=== PATIENT | female | born 1990 | race Caucasian/White ===

== ENCOUNTER 2016-07-16 22:47 | Emergency (ER) | payer MEDICAID ==
[~2016-07-16] VITALS: Ht 167.6 cm; Wt 62.4 kg
[~2016-07-16 22:47] MED LIST: CIPR750T10 PO; LAMI25TA3 PO; PRED5TAB; PRIL10CA PO
[2016-07-16 22:51] VITALS: BP 121/83; PULSE 90; RESP 16; TEMP 98.5; O2SAT 100
[2016-07-16 23:10] VITALS: BP 127/83; PULSE 90; RESP 18; TEMP 98.5; O2SAT 100
[2016-07-16] MEDS ORDERED: OMEP10CA PO (23:10)
[2016-07-16] MEDS ORDERED: LAMO150 PO (23:10)
--- NOTE | 2016-07-16 23:24 | PD ---
HPI Chief Complaint: Head Injury Time Seen by Provider: 23:18 Travel History International Travel<30 days: No Contact w/Intl Traveler<30days: No Traveled to known affect area: No History of Present Illness HPI This 25-year-old female with the back of her head during the seizure. She has a lifelong history of seizures. She is on Lamictal 150 twice a day she takes her medication on a regular basis. She does not drink alcohol she has grand mal and petit mal seizures. She has not had a grand mal seizure for almost a year. She gets petit mal seizures almost every day. She sees a neurologist in [place]. She has no numbness tingling or paresthesias there are no other injuries PFSH Past Medical History Asthma: Yes Bipolar Disorder: Yes Anxiety: Yes Depression: Yes Diminished Hearing: No Psychiatric: Yes (SUPPOSE TO TAKE MEDS FOR BIPOLAR BUT CAN'T AFFORD THEM ) Seizures: Yes Tetanus Vaccination: Unknown Influenza Vaccination: No ?: Not LMP: 06/14/16 : 2 Para: 2 Past Surgical History Cholecystectomy: Yes Oral Surgery: Yes (wisdom teeth removed) Social History Alcohol Use: No Tobacco Use: Yes (1PK/DAY) Substance Use: No Allergies-Medications (Allergen,Severity, Reaction): Coded Allergies: No Known Allergies (Verified , 07/16/16) Reported Meds & Prescriptions Reported Meds & Active Scripts Active Reported Omeprazole 10 Mg Cap 10 Mg PO DAILY Lamictal (Lamotrigine) 150 Mg Tab 150 Mg PO BID Review of Systems General / Constitutional: No: Fever, Chills Eyes: No: Diploplia HENT: Positive: Headaches, No: Vertigo, Lightheadedness Cardiovascular: No: Chest Pain or Discomfort Respiratory: No: Cough, Shortness of Breath Gastrointestinal: No: Nausea, Vomiting Genitourinary: No: Urgency, Frequency Musculoskeletal: Positive: Pain, No: Myalgias Skin: No Rash, No Itching Neurologic: No: Weakness, Dizziness Hematologic/Lymphatic: No: Easy Bruising Physical Exam Narrative GENERAL: Well-developed female SKIN: Focused skin assessment warm/dry. HEAD: Atraumatic. Normocephalic. Ears some tenderness in the occipital portion of the scalp. EYES: Pupils equal and round. No scleral icterus. No injection or drainage. ENT: No nasal bleeding or discharge. Mucous membranes pink and moist. NECK: Trachea midline. No JVD. No posterior midline tenderness CARDIOVASCULAR: Regular rate and rhythm. No murmur appreciated. RESPIRATORY: No accessory muscle use. Clear to auscultation. Breath sounds equal bilaterally. GASTROINTESTINAL: Abdomen soft, non-tender, nondistended. Hepatic and splenic margins not palpable. MUSCULOSKELETAL: No obvious deformities. No clubbing. No cyanosis. No edema. NEUROLOGICAL: Awake and alert. No obvious cranial nerve deficits. Motor grossly within normal limits. Normal speech. PSYCHIATRIC: Appropriate mood and affect; insight and judgment normal. Data Data Last Documented VS Vital Signs Date Time Temp Pulse Resp B/P Pulse Ox O2 Delivery O2 Flow Rate FiO2 07/16/16 23:13 90 18 100 Room Air 07/16/16 23:10 98.5 127/[address] Brain W/O Iv Contrast(Rout) (07/16/16 23:18) [facility] Medical Decision Making Medical Screen Exam Complete: Yes Emergency Medical Condition: Yes Medical Record Reviewed: Yes Differential Diagnosis Differential includes skull fracture, subdural, seizure disorder Narrative Course Patient's seizures have been fairly well-controlled she says she is compliant with her medication. She did hit her head during the seizure and I will do a CT scan to assess for possible injury. CT scan has been done and is negative for fracture or hemorrhage. Patient is stable for discharge Diagnosis Primary Impression: Seizure disorder Additional Impression: Contusion of head Qualified Code: S00.93XA - Contusion of head, unspecified part of head, initial encounter Disposition: DISCHARGE HOME Condition: Stable Aren Harris MD July 16, 2016 23:24
[2016-07-17 00:06] VITALS: BP 118/74; PULSE 80; RESP 18; O2SAT 99
--- NOTE | 2016-07-17 00:08 | RADHPO ---
EXAM DATE/TIME: 07/16/2016 23:29 [facility] COMPARISON: No previous studies available for comparison. INDICATIONS : Syncopal episode, fall. RADIATION DOSE: 67.17 CTDIvol (mGy) MEDICAL HISTORY : Seizures. SURGICAL HISTORY : None. ENCOUNTER: Initial ACUITY: 1 day PAIN SCALE: 3/10 LOCATION: cranial TECHNIQUE: Multiple contiguous axial images were obtained of the head. Using automated exposure control and adj ustment of the mA and/or kV according to patient size, radiation dose was kept as low as reasonably a chievable to obtain optimal diagnostic quality images. FINDINGS: CEREBRUM: The ventricles are normal for age. No evidence of midline shift, mass lesion, hemorrhage or acute in farction. No extra-axial fluid collections are seen. POSTERIOR FOSSA: The cerebellum and brainstem are intact. The 4th ventricle is midline. The cerebellopontine angle i s unremarkable. EXTRACRANIAL: The visualized portion of the orbits is intact. SKULL: The calvaria is intact. No evidence of skull fracture. CONCLUSION: 1. No evidence of acute intracranial pathology. No masses are identified. Flavio Doyle MD on July 17, 2016 at 0:06 Board Certified Radiologist. This report was verified electronically.
== END 2016-07-17 00:15 | disposition home or self-care (01) ==
LOC: PHED 22:47
DX: S00.93XA Contusion of unspecified part of head, initial encounter (principal); R56.9 Unspecified convulsions; J45.909 Unspecified asthma, uncomplicated; F17.210 Nicotine dependence, cigarettes, uncomplicated; W22.09XA Striking against other stationary object, initial encounter; Y93.89 Activity, other specified; Y92.9 Unspecified place or not applicable; Y99.8 Other external cause status
CPT/HCPCS: 70450

== ENCOUNTER 2016-09-02 15:46 | Emergency (ER) | payer MEDICAID ==
[2016-09-02] VITALS (7 sets, daily range): BP systolic 111–122; BP diastolic 57–83; PULSE 80–111; RESP 16; TEMP 99–100.7; O2SAT 98–100
[~2016-09-02] VITALS: Ht 162.6 cm; Wt 61.8 kg
[~2016-09-02 15:46] MED LIST changes: -CIPR750T10 PO; -LAMI25TA3 PO; +LAMO150 PO; +OMEP10CA PO; -PRED5TAB; -PRIL10CA PO
[2016-09-02] MEDS ORDERED: diphenhydrAMINE HCL 50 MG/ML VIAL IV PUSH ONE (16:15)
[2016-09-02] MEDS ORDERED: SODIUM CHLOR 0.9% 1000 ML INJ 800 ML IV ONE (16:15)
[2016-09-02] MEDS ORDERED: PROCHLORPERAZINE INJ 10 MG/2 ML VIAL IV PUSH ONE (16:15)
[2016-09-02] MEDS ORDERED: ACETAMINOPHEN 325 MG TAB PO ONE (16:15)
[2016-09-02] MEDS ORDERED: SODIUM CHLOR 0.9% 1000 ML INJ 1,000 ML IV ONE (16:15)
--- NOTE | 2016-09-02 16:40 | RADHPO ---
EXAM DATE/TIME: 09/02/2016 16:20 [facility] COMPARISON: No previous studies available for comparison. INDICATIONS : Weakness. Nausea. Patient states pain all over body. MEDICAL HISTORY : None. SURGICAL HISTORY : None. ENCOUNTER: Initial ACUITY: 1 day PAIN SCORE: 10/10 LOCATION: chest FINDINGS: PA and lateral views of the chest demonstrate the lungs to be symmetrically aerated without evidence of mass, infiltrate or effusion. The cardiomediastinal contours are unremarkable. Osseous structure s are intact. There appear to be clips in the right upper quadrant of the abdomen. CONCLUSION: No acute disease. Dallas Lu MD on September 02, 2016 at 16:37 Board Certified Radiologist. This report was verified electronically.
[2016-09-02 16:45] LABS: AUTOMATED NEUTROPHIL # 4.1 TH/MM3 (1.8-7.7); BASOPHIL % 0.2 % (0.0-2.0); EOSINOPHIL # 0.1 TH/MM3 (0-0.4); EOSINOPHIL % 1.2 % (0.0-4.0); HEMO FLAGS DIFF FINAL; LYMPH % 19.3 % (9.0-44.0); LYMPHOCYTE # 1.2 TH/MM3 (1.0-4.8); MEAN CELL VOLUME 91.6 FL (80.0-100.0); MEAN CORPUSCULAR HEMOGLOBIN 31.1 PG (27.0-34.0); MONO % 9.4 % (0.0-8.0); NEUT % 69.9 % (16.0-70.0); PLATELET COUNT 182 TH/MM3 (150-450); RED BLOOD COUNT 4.15 MIL/MM3 (4.00-5.30); RED CELL DISTRIBUTION WIDTH 11.6 % (11.6-17.2)
[2016-09-02 16:51] LABS: BLOOD, URINE SMALL (NEG); GLUCOSE,URINE NEG (NEG); KETONE, URINE NEG (NEG); NITRITE,URINE NEG (NEG)
[2016-09-02 16:53] LABS: CHLORIDE 102 MEQ/L (98-107); POTASSIUM 3.1 MEQ/L (3.5-5.1); SODIUM (NA) 140 MEQ/L (136-145)
[2016-09-02 16:56] LABS: URINE COLOR YELLOW (YELLW/STRAW)
[2016-09-02 16:57] LABS: ANION GAP 9 MEQ/L (5-15); BLOOD UREA NITROGEN 7 MG/DL (7-18); MUCUS URINE MOD /lpf (OCC)
[2016-09-02 16:58] LABS: APTT (PATIENT) 32.4 SEC (24.3-30.1); BACTERIA, URINE MANY /hpf; COMMENT (UR) CATH-CULTURE IND; CULTURE IF INDICATED CATH CULTURE IND; PROTHROMBIN TIME - PATIENT 11.1 SEC (9.8-11.6); RBC, URINE 0-3 /hpf (0-3); SQUAMOUS EPITHELIAL CELL URINE > 8 /hpf (0-5); WBC, URINE 15-19 /hpf (0-5)
[2016-09-02 17:00] LABS: ALT (GPT) 15 U/L (10-53); AST (GOT) 11 U/L (15-37); GLOMERULAR FILTRATION RATE 93 ML/MIN (>89)
[2016-09-02 17:01] LABS: TOTAL BILIRUBIN ADULT 0.4 MG/DL (0.2-1.0)
[2016-09-02 17:03] LABS: ALKALINE PHOSPHATASE 58 U/L (45-117)
[2016-09-02] MEDS ORDERED: cefTRIAXone INJ 1,000 MG in SODIUM CHLORIDE 0.9% INJ 100 ML IV ONE (17:15)
--- NOTE | 2016-09-02 17:29 | RADHPO ---
EXAM DATE/TIME: 09/02/2016 17:13 [facility] COMPARISON: CT BRAIN W/O CONTRAST, July 16, 2016, 23:29. INDICATIONS : Headache and nausea. RADIATION DOSE: 60.15 CTDIvol (mGy) MEDICAL HISTORY : Seizures. SURGICAL HISTORY : Cholecystectomy. ENCOUNTER: Initial ACUITY: 1 day PAIN SCALE: 4/10 LOCATION: cranial TECHNIQUE: Multiple contiguous axial images were obtained of the head. Using automated exposure control and adj ustment of the mA and/or kV according to patient size, radiation dose was kept as low as reasonably a chievable to obtain optimal diagnostic quality images. FINDINGS: CEREBRUM: The ventricles are normal for age. No evidence of midline shift, mass lesion, hemorrhage or acute in farction. No extra-axial fluid collections are seen. POSTERIOR FOSSA: The cerebellum and brainstem are intact. The 4th ventricle is midline. The cerebellopontine angle i s unremarkable. EXTRACRANIAL: The visualized portion of the orbits is intact. SKULL: The calvaria is intact. No evidence of skull fracture. CONCLUSION: 1. No acute intracranial abnormality. Quirino Haynes MD on September 02, 2016 at 17:26 Board Certified Radiologist. This report was verified electronically.
--- NOTE | 2016-09-02 17:43 | PD ---
HPI Chief Complaint: Headache Time Seen by Provider: 16:05 Travel History International Travel<30 days: No Contact w/Intl Traveler<30days: No Traveled to known affect area: No History of Present Illness HPI Patient is a 25 year old female who comes in complaining of headache and not feeling well. She says she has been feeling hot and cold for the past 4 days. She reports a headache in the front of her head. She says she has had a slight cough and she feels pain all over her body. She reports vomiting today. She denies diarrhea. She says she is urinating more often, but has not had burning with urination. She complains or right sided back pain radiating into the right groin. She denies IV drug abuse. She has been taking Ibuprofen at home for her symptoms without much relief. [facility] Past Medical History Hx Anticoagulant Therapy: No Asthma: Yes Bipolar Disorder: Yes Anxiety: Yes Depression: Yes Diabetes: No Diminished Hearing: No Psychiatric: Yes (SUPPOSE TO TAKE MEDS FOR BIPOLAR BUT CAN'T AFFORD THEM ) Seizures: Yes Tetanus Vaccination: Unknown ?: Not : 2 Para: 2 Past Surgical History Cholecystectomy: Yes Oral Surgery: Yes (wisdom teeth removed) Social History Alcohol Use: No Tobacco Use: Yes (1PK/DAY) Substance Use: No Allergies-Medications (Allergen,Severity, Reaction): Coded Allergies: No Known Allergies (Verified , 09/02/16) Reported Meds & Prescriptions Reported Meds & Active Scripts Active Reported Lamictal (Lamotrigine) 150 Mg Tab 150 Mg PO BID Review of Systems Except as stated in HPI: all other systems reviewed are Neg General / Constitutional: Positive: Fever, Chills Eyes: No: Blurred Vision HENT: Positive: Headaches Cardiovascular: No: Chest Pain or Discomfort Respiratory: Positive: Cough, No: Shortness of Breath Gastrointestinal: Positive: Nausea, Vomiting, Abdominal Pain Genitourinary: Positive: Flank Pain Skin: No Rash, No Change in Pigmentation Neurologic: No: Weakness, Dizziness Physical Exam Narrative GENERAL: Awake and alert, in no acute distress. SKIN: Focused skin assessment warm/dry. No wounds or signs of infection. HEAD: Atraumatic. Normocephalic. EYES: Pupils equal and round. No scleral icterus. Extraocular movements intact. ENT: Mucous membranes pink and moist. NECK: Trachea midline. No JVD. No meningeal signs. CARDIOVASCULAR: Regular rate and rhythm. No murmur appreciated. RESPIRATORY: No accessory muscle use. Clear to auscultation. Breath sounds equal bilaterally. GASTROINTESTINAL: Abdomen soft, non-tender, nondistended. Right CVA tenderness. MUSCULOSKELETAL: No obvious deformities. No clubbing. No cyanosis. No edema. NEUROLOGICAL: Awake and alert. No obvious cranial nerve deficits. Motor grossly within normal limits. Normal speech. PSYCHIATRIC: Appropriate mood and affect; insight and judgment normal. Data Data Last Documented VS Vital Signs Date Time Temp Pulse Resp B/P Pulse Ox O2 Delivery O2 Flow Rate FiO2 09/02/16 17:58 100.2 100 16 111/57 100 Room Air Orders Complete Blood Count With Diff (09/02/16 16:15) Comprehensive Metabolic Panel (09/02/16 16:15) Prothrombin Time / Inr (Pt) (09/02/16 16:15) Act Partial Throm Time (Ptt) (09/02/16 16:15) Lactic Acid Sepsis Protocol (09/02/16 16:15) Lipase (09/02/16 16:15) Urinalysis - C+S If Indicated (09/02/16 16:15) Chest, Pa & Lat (09/02/16 16:15) Ecg Monitoring (09/02/16 16:15) Iv Access Insert/Monitor (09/02/16 16:15) Oximetry (09/02/16 16:15) Acetaminophen (Tylenol) (09/02/16 16:15) Ct Brain W/O Iv Contrast(Rout) (09/02/16 16:15) Sodium Chlor 0.9% 1000 Ml Inj (Ns 1000 M (09/02/16 16:15) Sodium Chlor 0.9% 1000 Ml Inj (Ns 1000 M (09/02/16 16:15) Prochlorperazine Inj (Compazine Inj) (09/02/16 16:15) Diphenhydramine Inj (Benadryl Inj) (09/02/16 16:15) Ed Urine Pregnancytest Poc (09/02/16 16:15) Urine Culture (09/02/16 16:34) Ceftriaxone Inj (Rocephin Inj) (09/02/16 17:15) Potassium Chloride (Kcl) (09/02/16 17:45) Ketorolac Inj (Toradol Inj) (09/02/16 18:00) Labs Laboratory Tests Test 09/02/16 16:34 White Blood Count 6.0 TH/MM3 Red Blood Count 4.15 MIL/MM3 Hemoglobin 12.9 GM/DL Hematocrit 38.0 % Mean Corpuscular Volume 91.6 FL Mean Corpuscular Hemoglobin 31.1 PG Mean Corpuscular Hemoglobin 34.0 % Concent Red Cell Distribution Width 11.6 % Platelet Count 182 TH/MM3 Mean Platelet Volume 8.4 FL Neutrophils (%) (Auto) 69.9 % Lymphocytes (%) (Auto) 19.3 % Monocytes (%) (Auto) 9.4 % Eosinophils (%) (Auto) 1.2 % Basophils (%) (Auto) 0.2 % Neutrophils # (Auto) 4.1 TH/MM3 Lymphocytes # (Auto) 1.2 TH/MM3 Monocytes # (Auto) 0.6 TH/MM3 Eosinophils # (Auto) 0.1 TH/MM3 Basophils # (Auto) 0.0 TH/MM3 CBC Comment DIFF FINAL Differential Comment Prothrombin Time 11.1 SEC Prothromb Time International 1.0 RATIO Ratio Activated Partial 32.4 SEC Thromboplast Time Urine Color YELLOW Urine Turbidity CLOUDY Urine pH 6.0 Urine Specific Raymond 1.015 Urine Protein TRACE mg/dL Urine Glucose (UA) NEG mg/dL Urine Ketones NEG mg/dL Urine Occult Blood SMALL Urine Nitrite NEG Urine Bilirubin NEG Urine Leukocyte Esterase SMALL Urine RBC 0-3 /hpf Urine WBC 15-19 /hpf Urine Squamous Epithelial > 8 /hpf Cells Urine Bacteria MANY /hpf Urine Mucus MOD /lpf Microscopic Urinalysis Comment CATH-CULTURE IND Sodium Level 140 MEQ/L Potassium Level 3.1 MEQ/L Chloride Level 102 MEQ/L Carbon Dioxide Level 29.0 MEQ/L Anion Gap 9 MEQ/L Blood Urea Nitrogen 7 MG/DL Creatinine 0.75 MG/DL Estimat Glomerular Filtration 93 ML/MIN Rate Random Glucose 83 MG/DL Lactic Acid Level 0.7 mmol/L Calcium Level 8.5 MG/DL Total Bilirubin 0.4 MG/DL Aspartate Amino Transf 11 U/L (AST/SGOT) Alanine Aminotransferase 15 U/L (ALT/SGPT) Alkaline Phosphatase 58 U/L Total Protein 7.0 GM/DL Albumin 3.5 GM/DL Lipase 104 U/L [facility] Medical Decision Making Medical Screen Exam Complete: Yes Emergency Medical Condition: Yes Medical Record Reviewed: Yes Differential Diagnosis UTI versus pyelonephritis versus gastroenteritis versus pneumonia versus bronchitis versus viral illness Narrative Course Patient is a 25-year-old female who comes in complaining of headache, body aches , nausea, vomiting, right flank pain. Exam shows right CVA tenderness. IV established, labs sent. Labs show a potassium of 3.1, this was replaced. Urinalysis is positive for UTI. She is given a dose of Rocephin here. Given IV fluids. Given Compazine and Benadryl and Tylenol for her headache. She reports feeling better. Given Toradol for continued low grade fever. She will be discharged with prescription for Cipro. She is advised to follow up with a primary care physician. Advised to return to the ED as needed for any worsening symptoms. Diagnosis Primary Impression: Pyelonephritis Patient Instructions: General Instructions, Kidney Infection (ED), Urinary Tract Infection in Women (ED) Additional Instructions: Take all of your antibiotic. Drink plenty of fluids. Take Tylenol or Ibuprofen as needed for pain or fever. Follow up with a primary care physician. Return to the ED as needed for any worsening symptoms. Scripts Ciprofloxacin (Cipro)500 Mg Owt444 Mg PO BID 10 Days Ref 0 Prov:Paulette Mcknight MD 09/02/16 Disposition: 01 DISCHARGE HOME Condition: Stable Paulette Mcknight MD Sep 02, 2016 17:43
[2016-09-02] MEDS ORDERED: POTASSIUM CHLORIDE 10 MEQ CONTROLLED RELEASE TAB PO ONE (17:45)
[2016-09-02] MEDS ORDERED: KETOROLAC TROMETHAMINE 30 MG/ML (IVP) VIAL IV PUSH ONE (18:00)
[2016-09-02] MEDS ORDERED: CIPR-9 PO (19:42)
== END 2016-09-02 20:15 | disposition home or self-care (01) ==
LOC: PHED 15:46
DX: N12 Tubulo-interstitial nephritis, not specified as acute or chronic (principal); R51 Headache; J45.909 Unspecified asthma, uncomplicated; F17.210 Nicotine dependence, cigarettes, uncomplicated; B96.20 Unspecified Escherichia coli [E. coli] as the cause of diseases classified elsewhere
CPT/HCPCS: 70450; 71020; 80053; 81001; 83605; 83690; 84703; 85025; 85610; 85730; 87077; 87086; 87186; 96361; 96365; 96375; 99285; J0696; J0780; J1200; J1885; J7030

== ENCOUNTER 2016-12-28 00:12 | Emergency (ER) | payer MEDICAID ==
[~2016-12-28 00:12] MED LIST changes: +CIPR-9 PO; -OMEP10CA PO
[2016-12-28] MEDS ORDERED: CLON1 PO (00:22)
[2016-12-28] MEDS ORDERED: OMEP20TA PO (00:24)
[2016-12-28 00:25] VITALS: BP 131/63; PULSE 88; RESP 16; TEMP 98.2; O2SAT 95
[2016-12-28] MEDS ORDERED: ZOLO50TA PO (00:25)
[2016-12-28] MEDS ORDERED: CARB300C7 PO (00:25)
[2016-12-28 00:30] VITALS: O2SAT 97
--- NOTE | 2016-12-28 01:36 | PD ---
HPI Chief Complaint: Seizure Time Seen by Provider: 01:19 Travel History International Travel<30 days: No Contact w/Intl Traveler<30days: No Traveled to known affect area: No History of Present Illness HPI The patient is a 26-year-old female that was brought in by ambulance for having a seizure. The patient has a lifelong history of seizures. She takes Lamictal 150 mg twice daily and takes her medications regularly. She does not drink alcohol. Grand mal seizures are somewhat rare for her, the last seizure may have been last July. She does get petit mal seizures almost on a daily basis. She sees a neurologist in the [place]. She has no focal weakness, numbness, tingling, paresthesias or any other injuries other than she bit her lower lip and a tooth. These lesions are barely visible. She denies specifically any head trauma. She does smoke one half pack a day. She has been sleeping upright lately and went to a [employer] game and may have gotten dehydrated and overheated today. She denies any headache. She states there is no possibility of . PFSH Past Medical History Hx Anticoagulant Therapy: No Asthma: Yes Bipolar Disorder: Yes Anxiety: Yes Depression: Yes Diabetes: No Diminished Hearing: No Psychiatric: Yes (SUPPOSE TO TAKE MEDS FOR BIPOLAR BUT CAN'T AFFORD THEM ) Immunizations Current: Yes Seizures: Yes Tetanus Vaccination: Unknown Influenza Vaccination: No ?: Not LMP: 12-14-16 : 2 Para: 2 Past Surgical History Cholecystectomy: Yes Oral Surgery: Yes (wisdom teeth removed) Social History Alcohol Use: No Tobacco Use: Yes (1PK/DAY) Substance Use: No Allergies-Medications (Allergen,Severity, Reaction): Coded Allergies: No Known Allergies (Verified , 12/28/16) Reported Meds & Prescriptions Reported Meds & Active Scripts Active Reported Carbamazepine ER 12 HR (Carbamazepine) 300 Mg Cap 300 Mg PO Q12HR Zoloft (Sertraline HCl) 50 Mg Tab 50 Mg PO DAILY Omeprazole 20 Mg Tab 20 Mg PO DAILY Klonopin (Clonazepam) 1 Mg Tab 1 Mg PO BID Lamictal (Lamotrigine) 150 Mg Tab 150 Mg PO BID Review of Systems Except as stated in HPI: all other systems reviewed are Neg Physical Exam Narrative GENERAL: The patient is alert, oriented 3 in no apparent distress. Her vital signs are normal. SKIN: Focused skin assessment warm/dry. HEAD: Atraumatic. Normocephalic. Neither raccoon eyes nor mccullough sign is present. EYES: Pupils equal and round. No scleral icterus. No injection or drainage. ENT: No nasal bleeding or discharge. Mucous membranes pink and moist. The tympanic membranes are clear and the throat is clear. There is slight swelling of the right tongue where she apparently bit her tongue, this is barely visible. She also has some slight redness on the lower lip where apparently she bit her lower lip during the seizure. NECK: Trachea midline. No JVD. There is no meningismus and no posterior spinous tenderness or deformity. CARDIOVASCULAR: Regular rate and rhythm. No murmur appreciated. RESPIRATORY: No accessory muscle use. Clear to auscultation. Breath sounds equal bilaterally. GASTROINTESTINAL: Abdomen soft, non-tender, nondistended. Hepatic and splenic margins not palpable. MUSCULOSKELETAL: No obvious deformities. No clubbing. No cyanosis. No edema. NEUROLOGICAL: Awake and alert. No obvious cranial nerve deficits. Motor grossly within normal limits. Normal speech and gait. PSYCHIATRIC: Appropriate mood and affect; insight and judgment normal. Data Data Last Documented VS Vital Signs Date Time Temp Pulse Resp B/P (MAP) Pulse Ox O2 Delivery O2 Flow Rate FiO2 12/28/16 00:30 97 Room Air 12/28/16 00:25 98.2 88 16 131/63 (85) Orders Orders Blood Glucose (12/28/16 01:06) Oximetry (12/28/16 01:06) Iv Access Insert/Monitor (12/28/16 01:06) Ecg Monitoring (12/28/16 01:06) Oxygen Administration (12/28/16 01:06) Basic Metabolic Panel (Bmp) (12/28/16 01:06) Labs Laboratory Tests Test 12/28/16 01:17 Blood Urea Nitrogen 14 MG/DL Creatinine 0.71 MG/DL Random Glucose 90 MG/DL Calcium Level 8.3 MG/DL Sodium Level 139 MEQ/L Potassium Level 3.7 MEQ/L Chloride Level 107 MEQ/L Carbon Dioxide Level 25.3 MEQ/L Anion Gap 7 MEQ/L Estimat Glomerular Filtration Rate 99 ML/MIN MDM Medical Decision Making Medical Screen Exam Complete: Yes Emergency Medical Condition: Yes Medical Record Reviewed: Yes Interpretation(s) The basic metabolic profile is normal except for calcium of 8.3. Differential Diagnosis Seizure disorder with seizure, pseudoseizures-unlikely, electrolyte disorder, hypo-/hyperglycemia, severe hypocalcemia-highly unlikely Narrative Course The patient does appear to have sleep deprivation. This coupled with her seizure disorder and being out in the sun, dehydration watching the football game may have lowered her seizure threshold. Plan: The patient is to get adequate sleep and follow-up with her neurologist in [facility]. Additional Instructions: As we discussed, get plenty of sleep and follow-up with your neurologist in [facility]. Med/Other Pt SpecificInfo: No Change to Meds Disposition: 01 DISCHARGE HOME Condition: Stable Jeff Carreno MD Dec 28, 2016 01:36
[2016-12-28 01:47] LABS: POTASSIUM 3.7 MEQ/L (3.5-5.1)
[2016-12-28 01:50] LABS: BICARBONATE 25.3 MEQ/L (21.0-32.0)
[2016-12-28 02:12] VITALS: BP 100/53
== END 2016-12-28 02:19 | disposition home or self-care (01) ==
LOC: PHED 00:12
DX: G40.909 Epilepsy, unspecified, not intractable, without status epilepticus (principal); J45.909 Unspecified asthma, uncomplicated; F31.9 Bipolar disorder, unspecified; F41.9 Anxiety disorder, unspecified; F17.200 Nicotine dependence, unspecified, uncomplicated; Z79.899 Other long term (current) drug therapy
CPT/HCPCS: 80048; 99283

== ENCOUNTER 2016-12-28 03:20 | Emergency (ER) | payer MEDICAID ==
[~2016-12-28] VITALS: Ht 162.6 cm; Wt 60.0 kg
[~2016-12-28 03:20] MED LIST changes: +CARB300C7 PO; +CLON1 PO; +OMEP20TA PO; +ZOLO50TA PO
[2016-12-28] MEDS ORDERED: lamoTRIgine 100 MG TAB PO ONE (03:30)
[2016-12-28 03:31] VITALS: BP 109/54; PULSE 88; RESP 15; TEMP 98.1; O2SAT 95
--- NOTE | 2016-12-28 04:12 | PD ---
HPI Chief Complaint: Seizure Time Seen by Provider: 03:28 Travel History International Travel<30 days: No Contact w/Intl Traveler<30days: No Traveled to known affect area: No History of Present Illness HPI The patient is a 26-year-old female that was seen here about 2 hours ago for having a seizure. She does have a seizure disorder. She had a second seizure lasting less than a minute, it was shorter than the first seizure tonight. She has been sleeping upright of 10 that was felt to be the reason her seizure threshold was lowered. Also, she spent the day watching a football game outside and it was hot and she may have gotten somewhat dehydrated. PFSH Past Medical History Hx Anticoagulant Therapy: No Asthma: Yes Bipolar Disorder: Yes Anxiety: Yes Depression: Yes Diabetes: No Diminished Hearing: No Psychiatric: Yes (SUPPOSE TO TAKE MEDS FOR BIPOLAR BUT CAN'T AFFORD THEM ) Immunizations Current: Yes Seizures: Yes Tetanus Vaccination: Unknown Influenza Vaccination: No ?: Not LMP: 12-14-16 : 2 Para: 2 Past Surgical History Cholecystectomy: Yes Oral Surgery: Yes (wisdom teeth removed) Social History Alcohol Use: No Tobacco Use: Yes (1PK/DAY) Substance Use: No Allergies-Medications (Allergen,Severity, Reaction): Coded Allergies: No Known Allergies (Verified , 12/28/16) Reported Meds & Prescriptions Reported Meds & Active Scripts Active Reported Carbamazepine ER 12 HR (Carbamazepine) 300 Mg Cap 300 Mg PO Q12HR Zoloft (Sertraline HCl) 50 Mg Tab 50 Mg PO DAILY Omeprazole 20 Mg Tab 20 Mg PO DAILY Klonopin (Clonazepam) 1 Mg Tab 1 Mg PO BID Lamictal (Lamotrigine) 150 Mg Tab 150 Mg PO BID Review of Systems Except as stated in HPI: all other systems reviewed are Neg Physical Exam Narrative GENERAL: The patient is alert, oriented 3 in no apparent distress. She is slightly groggy, she gets this way after her seizures according to the . The blood pressure is 109/54 but the rest the vital signs are normal. SKIN: Focused skin assessment warm/dry. HEAD: Atraumatic. Normocephalic. EYES: Pupils equal and round. No scleral icterus. No injection or drainage. ENT: No nasal bleeding or discharge. Mucous membranes pink and moist. NECK: Trachea midline. No JVD. CARDIOVASCULAR: Regular rate and rhythm. No murmur appreciated. RESPIRATORY: No accessory muscle use. Clear to auscultation. Breath sounds equal bilaterally. GASTROINTESTINAL: Abdomen soft, non-tender, nondistended. Hepatic and splenic margins not palpable. MUSCULOSKELETAL: No obvious deformities. No clubbing. No cyanosis. No edema. NEUROLOGICAL: Awake and alert. No obvious cranial nerve deficits. Motor grossly within normal limits. Normal speech. PSYCHIATRIC: Appropriate mood and affect; insight and judgment normal. Data Data Last Documented VS Vital Signs Date Time Temp Pulse Resp B/P (MAP) Pulse Ox O2 Delivery O2 Flow Rate FiO2 12/28/16 03:31 98.1 88 15 109/54 (72) 95 Orders Orders Lamotrigine (Lamictal) (12/28/16 03:30) [facility] Medical Decision Making Medical Screen Exam Complete: Yes Emergency Medical Condition: Yes Medical Record Reviewed: Yes Differential Diagnosis Seizure disorder with seizures, status epilepticus-highly unlikely Narrative Course The patient has seizure disorder with seizures. I still believe that sleep deprivation is lowered her seizure threshold. Also, the day out in the sun may have lowered the threshold as well. Plan: The patient will call her neurologist Thursday morning for advice/possible medication adjustment. Additional Instructions: As we discussed, call your neurologist Thursday morning for advice/possible medication adjustment. Med/Other Pt SpecificInfo: No Change to Meds Disposition: 01 DISCHARGE HOME Condition: Stable eJff Carreno MD Dec 28, 2016 04:12
== END 2016-12-28 04:26 | disposition home or self-care (01) ==
LOC: PHED 03:20
DX: G40.909 Epilepsy, unspecified, not intractable, without status epilepticus (principal); J45.909 Unspecified asthma, uncomplicated; F31.9 Bipolar disorder, unspecified; F41.9 Anxiety disorder, unspecified; F17.200 Nicotine dependence, unspecified, uncomplicated; Z79.899 Other long term (current) drug therapy
CPT/HCPCS: 99283

== ENCOUNTER 2017-03-12 13:36 | Emergency (ER) | payer MEDICAID ==
[~2017-03-12] VITALS: Ht 167.6 cm; Wt 59.0 kg
[~2017-03-12 13:36] MED LIST changes: -CIPR-9 PO; -OMEP20TA PO; +OMEP20TA93 PO
[2017-03-12 13:37] VITALS: BP 125/71; PULSE 97; RESP 18; TEMP 98; O2SAT 97
[2017-03-12] MEDS ORDERED: CLON.5 PO (13:55)
[2017-03-12] MEDS ORDERED: TEGR200T PO (13:58)
[2017-03-12] MEDS ORDERED: SODIUM CHLOR 0.9% 1000 ML INJ 1,000 ML IV SCH (14:01)
--- NOTE | 2017-03-12 14:09 | PD ---
HPI Chief Complaint: Flank/Kidney Pain Time Seen by Provider: 13:46 Travel History International Travel<30 days: No Contact w/Intl Traveler<30days: No Traveled to known affect area: No History of Present Illness HPI The patient is a 26-year-old female who presents to the emergency department for right flank pain of 5 days' duration. The patient states the pain started 5 days ago, is located mid right lumbar region, radiates to the right flank, is intermittent, worse with certain movements, but also present at rest. Occasionally the patient states the pain will radiate from her neck on the way down the right leg, but is mostly associated over the right flank. She does note nausea and vomiting earlier today secondary to the pain. She denies any dysuria, frequency, urgency, hematuria, vaginal discharge, or vaginal bleeding. The patient's last menstrual cycle was 2 weeks ago. She denies any history nephrolithiasis or ovarian cyst. Symptoms are moderate without any alleviating or exacerbating factors. Patient's primary physician is Dr. Ray Larose. The patient has not taken any medications at home for her symptoms. The patient denies any postprandial symptoms. She denies any chest pain, shortness breath, or cough. PFSH Past Medical History Hx Anticoagulant Therapy: No Asthma: Yes Bipolar Disorder: Yes Anxiety: Yes Depression: Yes Diabetes: No Diminished Hearing: No Psychiatric: Yes (SUPPOSE TO TAKE MEDS FOR BIPOLAR BUT CAN'T AFFORD THEM ) Immunizations Current: Yes Seizures: Yes ?: Not LMP: 03/03/17 : 2 Para: 2 Past Surgical History Cholecystectomy: Yes Oral Surgery: Yes (wisdom teeth removed) Social History Alcohol Use: No Tobacco Use: Yes (1PK/DAY) Substance Use: No Allergies-Medications (Allergen,Severity, Reaction): Coded Allergies: No Known Allergies (Verified Adverse Reaction, Unknown, 03/12/17) Reported Meds & Prescriptions Reported Meds & Active Scripts Active Reported Tegretol (Carbamazepine) 200 Mg Tab 200 Mg PO BID Klonopin (Clonazepam) 0.5 Mg Tab 0.25 Mg PO BID Zoloft (Sertraline HCl) 50 Mg Tab 150 Mg PO DAILY Omeprazole 20 Mg Tab 20 Mg PO DAILY Lamictal (Lamotrigine) 150 Mg Tab 200 Mg PO BID Review of Systems Except as stated in HPI: all other systems reviewed are Neg General / Constitutional: No: Fever Cardiovascular: No: Chest Pain or Discomfort Respiratory: No: Shortness of Breath Gastrointestinal: Positive: Nausea, Vomiting, No: Diarrhea, Abdominal Pain Genitourinary: Positive: Flank Pain, No: Urgency, Frequency, Dysuria, Hematuria , Discharge, Vaginal Bleeding Skin: No Rash Physical Exam Narrative GENERAL: Awake, alert, pleasant 26-year-old female who appears her stated age and is in no acute respiratory distress. SKIN: Focused skin assessment warm/dry. HEAD: Atraumatic. Normocephalic. EYES: Pupils equal and round. No scleral icterus. No injection or drainage. ENT: No nasal bleeding or discharge. Breath smells of tobacco. NECK: Trachea midline. No JVD. CARDIOVASCULAR: Regular rate and rhythm. No murmur appreciated. RESPIRATORY: No accessory muscle use. Clear to auscultation. Breath sounds equal bilaterally. GASTROINTESTINAL: Abdomen soft, tenderness of the right flank and right mid abdomen. Negative McBurney's. Back: Mild right CVA tenderness. MUSCULOSKELETAL: No obvious deformities. No clubbing. No cyanosis. No edema. NEUROLOGICAL: Awake and alert. No obvious cranial nerve deficits. Motor grossly within normal limits. Normal speech. PSYCHIATRIC: Appropriate mood and affect; insight and judgment normal. Data Data Last Documented VS Vital Signs Date Time Temp Pulse Resp B/P (MAP) Pulse Ox O2 Delivery O2 Flow Rate FiO2 03/12/17 16:11 94 17 110/65 (80) 97 Room Air 03/12/17 13:37 98.0 Orders Orders Urinalysis - C+S If Indicated (03/12/17 13:51) Ed Urine Pregnancytest Poc (03/12/17 13:51) Complete Blood Count With Diff (03/12/17 14:01) Comprehensive Metabolic Panel (03/12/17 14:01) Lipase (03/12/17 14:01) Ct Abd/Pel W/O Iv Contrast (03/12/17 14:01) Iv Access Insert/Monitor (03/12/17 14:01) Ecg Monitoring (03/12/17 14:01) Oximetry (03/12/17 14:01) Morphine Inj (Morphine Inj) (03/12/17 14:15) Ondansetron Inj (Zofran Inj) (03/12/17 14:15) Sodium Chlor 0.9% 1000 Ml Inj (Ns 1000 M (03/12/17 14:01) Sodium Chloride 0.9% Flush (Ns Flush) (03/12/17 14:15) Urine Culture (03/12/17 13:47) Ceftriaxone Inj (Rocephin Inj) (03/12/17 15:00) Ondansetron Inj (Zofran Inj) (03/12/17 15:00) Labs Laboratory Tests Test 03/12/17 13:47 03/12/17 14:15 Urine Collection Type CLEAN CATCH Urine Color YELLOW Urine Turbidity MOD Urine pH 6.0 Urine Specific [place] 1.015 Urine Protein NEG mg/dL Urine Glucose (UA) NEG mg/dL Urine Ketones NEG mg/dL Urine Occult Blood NEG Urine Nitrite POS Urine Bilirubin NEG Urine Leukocyte Esterase NEG Urine WBC 15-19 /hpf Urine WBC Clumps MOD Urine Squamous Epithelial Cells > 8 /hpf Urine Amorphous Sediment FEW Urine Bacteria MANY /hpf Microscopic Urinalysis Comment CULTURE INDICATED Urine Collection Time 1317 White Blood Count 5.3 TH/MM3 Red Blood Count 4.16 MIL/MM3 Hemoglobin 13.1 GM/DL Hematocrit 38.8 % Mean Corpuscular Volume 93.4 FL Mean Corpuscular Hemoglobin 31.6 PG Mean Corpuscular Hemoglobin Concent 33.8 % Red Cell Distribution Width 11.2 % Platelet Count 208 TH/MM3 Mean Platelet Volume 8.7 FL Neutrophils (%) (Auto) 60.8 % Lymphocytes (%) (Auto) 25.8 % Monocytes (%) (Auto) 9.5 % Eosinophils (%) (Auto) 2.2 % Basophils (%) (Auto) 1.7 % Neutrophils # (Auto) 3.2 TH/MM3 Lymphocytes # (Auto) 1.4 TH/MM3 Monocytes # (Auto) 0.5 TH/MM3 Eosinophils # (Auto) 0.1 TH/MM3 Basophils # (Auto) 0.1 TH/MM3 CBC Comment DIFF FINAL Differential Comment Blood Urea Nitrogen 10 MG/DL Creatinine 0.76 MG/DL Random Glucose 84 MG/DL Total Protein 7.1 GM/DL Albumin 3.2 GM/DL Calcium Level 8.9 MG/DL Alkaline Phosphatase 73 U/L Aspartate Amino Transf (AST/SGOT) 49 U/L Alanine Aminotransferase (ALT/SGPT) 43 U/L Total Bilirubin 0.4 MG/DL Sodium Level 136 MEQ/L Potassium Level 4.3 MEQ/L Chloride Level 102 MEQ/L Carbon Dioxide Level 28.8 MEQ/L Anion Gap 5 MEQ/L Estimat Glomerular Filtration Rate 91 ML/MIN Lipase 97 U/L MDM Medical Decision Making Medical Screen Exam Complete: Yes Emergency Medical Condition: Yes Medical Record Reviewed: Yes Interpretation(s) Laboratory Tests Test 03/12/17 13:47 03/12/17 14:15 Urine Collection Type CLEAN CATCH Urine Color YELLOW Urine Turbidity MOD Urine pH 6.0 Urine Specific [place] 1.015 Urine Protein NEG mg/dL Urine Glucose (UA) NEG mg/dL Urine Ketones NEG mg/dL Urine Occult Blood NEG Urine Nitrite POS Urine Bilirubin NEG Urine Leukocyte Esterase NEG Urine WBC 15-19 /hpf Urine WBC Clumps MOD Urine Squamous Epithelial Cells > 8 /hpf Urine Amorphous Sediment FEW Urine Bacteria MANY /hpf Microscopic Urinalysis Comment CULTURE INDICATED Urine Collection Time 1317 White Blood Count 5.3 TH/MM3 Red Blood Count 4.16 MIL/MM3 Hemoglobin 13.1 GM/DL Hematocrit 38.8 % Mean Corpuscular Volume 93.4 FL Mean Corpuscular Hemoglobin 31.6 PG Mean Corpuscular Hemoglobin Concent 33.8 % Red Cell Distribution Width 11.2 % Platelet Count 208 TH/MM3 Mean Platelet Volume 8.7 FL Neutrophils (%) (Auto) 60.8 % Lymphocytes (%) (Auto) 25.8 % Monocytes (%) (Auto) 9.5 % Eosinophils (%) (Auto) 2.2 % Basophils (%) (Auto) 1.7 % Neutrophils # (Auto) 3.2 TH/MM3 Lymphocytes # (Auto) 1.4 TH/MM3 Monocytes # (Auto) 0.5 TH/MM3 Eosinophils # (Auto) 0.1 TH/MM3 Basophils # (Auto) 0.1 TH/MM3 CBC Comment DIFF FINAL Differential Comment Blood Urea Nitrogen 10 MG/DL Creatinine 0.76 MG/DL Random Glucose 84 MG/DL Total Protein 7.1 GM/DL Albumin 3.2 GM/DL Calcium Level 8.9 MG/DL Alkaline Phosphatase 73 U/L Aspartate Amino Transf (AST/SGOT) 49 U/L Alanine Aminotransferase (ALT/SGPT) 43 U/L Total Bilirubin 0.4 MG/DL Sodium Level 136 MEQ/L Potassium Level 4.3 MEQ/L Chloride Level 102 MEQ/L Carbon Dioxide Level 28.8 MEQ/L Anion Gap 5 MEQ/L Estimat Glomerular Filtration Rate 91 ML/MIN Lipase 97 U/L CT the abdomen and pelvis reveals no evidence of calcified renal stones or hydronephrosis. Prominent uterus. No acute pathology. Differential Diagnosis Differential diagnosis includes pyelonephritis, nephrolithiasis, cholecystitis, atypical appendicitis, diverticulitis, PID, ovarian torsion, ectopic . Narrative Course IV was established, labs are drawn and sent, and the patient was placed on cardiac telemetry monitoring and continuous pulse oximetry monitoring. UA test was obtained, was negative. UA was sent to lab. The patient was administered Toradol, morphine, Zofran, and IV fluids. Noncontrast CT of the abdomen and pelvis was performed to evaluate for nephrolithiasis. UA reveals WBCs consistent with infection, with flank pain, most likely pyelonephritis. The patient's white count is unremarkable. CT the abdomen and pelvis reveals no evidence of calcified renal stones or hydronephrosis, no acute pathology. Patient was reevaluated, her pain has significantly improved. The patient was administered Rocephin 1 g intravenously for pyelonephritis will be discharged home on Bactrim twice a day for 10 days. She will also be prescribed ibuprofen as needed for pain. She will be provided a copy of her lab results and CT results at discharge, is advised to follow-up with her primary physician. Diagnosis Primary Impression: Pyelonephritis Patient Instructions: General Instructions Additional Instructions: Medications as directed. Follow-up with your primary physician. Please provide the patient a copy of her CT results and lab results at discharge. Return if symptoms worsen or progress. Med/Other Pt SpecificInfo: Prescription(s) given Scripts Sulfamethoxazole-Trimethoprim (Bactrim DS) 800-160 Mg Tab 1 TAB PO BID for Infection, #20 TAB 0 Refills Prov: Arun Stone MD 03/12/17 Ibuprofen (Ibuprofen) 600 Mg Tab 600 MG PO Q6H Y for Pain/Inflammation, #20 TAB 0 Refills Prov: Arun Stone MD 03/12/17 Disposition: 01 DISCHARGE HOME Condition: Stable Arun Stone MD Mar 12, 2017 14:09
[2017-03-12] MEDS ORDERED: MORPHINE SULFATE 4 MG/ML INJ IV PUSH ONE (14:15)
[2017-03-12] MEDS ORDERED: ONDANSETRON HCL 4 MG/2 ML VIAL IVP ONE (14:15)
[2017-03-12] MEDS ORDERED: SODIUM CHLORIDE 0.9% FLUSH 10 ML FLUSH IV FLUSH PRN (14:15)
[2017-03-12 14:26] VITALS: BP 111/62; PULSE 88; RESP 18; O2SAT 97
[2017-03-12 14:28] LABS: AUTOMATED NEUTROPHIL # 3.2 TH/MM3 (1.8-7.7); BASOPHIL # 0.1 TH/MM3 (0-0.2); BASOPHIL % 1.7 % (0.0-2.0); EOSINOPHIL # 0.1 TH/MM3 (0-0.4); EOSINOPHIL % 2.2 % (0.0-4.0); HEMATOCRIT 38.8 % (35.0-46.0); HEMOGLOBIN 13.1 GM/DL (11.6-15.3); LYMPH % 25.8 % (9.0-44.0); LYMPHOCYTE # 1.4 TH/MM3 (1.0-4.8); MEAN CELL VOLUME 93.4 FL (80.0-100.0); MEAN CORPUSCULAR HEMOGLOBIN 31.6 PG (27.0-34.0); MEAN CORPUSCULAR HGB CONC 33.8 % (32.0-36.0); MEAN PLATELET VOLUME 8.7 FL (7.0-11.0); MONO % 9.5 % (0.0-8.0); MONOCYTE # 0.5 TH/MM3 (0-0.9); NEUT % 60.8 % (16.0-70.0); PLATELET COUNT 208 TH/MM3 (150-450); RED BLOOD COUNT 4.16 MIL/MM3 (4.00-5.30); RED CELL DISTRIBUTION WIDTH 11.2 % (11.6-17.2); WHITE BLOOD COUNT 5.3 TH/MM3 (4.0-11.0)
[2017-03-12 14:37] LABS: CHLORIDE 102 MEQ/L (98-107); SODIUM (NA) 136 MEQ/L (136-145)
[2017-03-12 14:40] LABS: BILIRUBIN, URINE NEG (NEG); BLOOD, URINE NEG (NEG); GLUCOSE,URINE NEG (NEG); KETONE, URINE NEG (NEG); NITRITE,URINE POS (NEG); URINE LEUKOCYTE ESTERASE NEG (NEG)
[2017-03-12 14:41] LABS: ALBUMIN 3.2 GM/DL (3.4-5.0); BICARBONATE 28.8 MEQ/L (21.0-32.0); BLOOD UREA NITROGEN 10 MG/DL (7-18); CALCIUM 8.9 MG/DL (8.5-10.1); GLUCOSE,RANDOM 84 MG/DL (74-106); LIPASE 97 U/L (73-393)
[2017-03-12 14:44] LABS: ALT (GPT) 43 U/L (10-53); AST (GOT) 49 U/L (15-37); CREATININE 0.76 MG/DL (0.50-1.00); GLOMERULAR FILTRATION RATE 91 ML/MIN (>89)
[2017-03-12 14:45] LABS: URINE COLOR YELLOW (YELLW/STRAW)
[2017-03-12 14:46] LABS: TOTAL BILIRUBIN ADULT 0.4 MG/DL (0.2-1.0); TOTAL PROTEIN 7.1 GM/DL (6.4-8.2)
[2017-03-12 14:46] LABS: AMORPHOUS SEDIMENT, URINE FEW; BACTERIA, URINE MANY /hpf; SQUAMOUS EPITHELIAL CELL URINE > 8 /hpf (0-5); WBC, URINE 15-19 /hpf (0-5); WHITE BLOOD CELL CLUMPS MOD
[2017-03-12 14:47] LABS: ALKALINE PHOSPHATASE 73 U/L (45-117)
[2017-03-12] MEDS ORDERED: cefTRIAXone INJ 1,000 MG in SODIUM CHLORIDE 0.9% INJ 100 ML IV ONE (15:00)
[2017-03-12] MEDS ORDERED: ONDANSETRON HCL 4 MG/2 ML VIAL IV PUSH ONE (15:00)
[2017-03-12 15:11] VITALS: BP 119/74; PULSE 79; RESP 17; O2SAT 98
[2017-03-12 16:11] VITALS: BP 110/65; PULSE 94; RESP 17; O2SAT 97
--- NOTE | 2017-03-12 16:14 | RADRPT ---
EXAM DATE/TIME: 03/12/2017 14:44 [facility] COMPARISON: No previous studies available for comparison. INDICATIONS : Right flank pain. ORAL CONTRAST: No oral contrast ingested. RADIATION DOSE: 7.17 CTDIvol (mGy) MEDICAL HISTORY : Seizures. Asthma. SURGICAL HISTORY : Cholecystectomy. ENCOUNTER: Initial ACUITY: 4 - 6 days PAIN SCALE: 5/10 LOCATION: Right flank TECHNIQUE: Volumetric scanning of the abdomen and pelvis was performed. Using automated exposure control and ad justment of the mA and/or kV according to patient size, radiation dose was kept as low as reasonably achievable to obtain optimal diagnostic quality images. DICOM format image data is available electro nically for review and comparison. FINDINGS: LOWER LUNGS: The visualized lower lungs are clear. LIVER: Homogeneous density without lesion. There is no dilation of the biliary tree. No gallbladder, surgi surinder removed. SPLEEN: Normal size without lesion. PANCREAS: Within normal limits. KIDNEYS: Normal in size and shape. There is no mass, stone, or hydronephrosis. ADRENAL GLANDS: Within normal limits. VASCULAR: There is no aortic aneurysm. BOWEL/MESENTERY: The stomach, small bowel, and colon demonstrate no acute abnormality. There is no free intraperitone al air or fluid. No inflammatory changes. Stool throughout the colon. ABDOMINAL WALL: Within normal limits. RETROPERITONEUM: There is no lymphadenopathy. BLADDER: No wall thickening or mass. REPRODUCTIVE: The uterus appears to be diffusely prominent.. INGUINAL: There is no lymphadenopathy or hernia. MUSCULOSKELETAL: Within normal limits for patient age. CONCLUSION: 1. No evidence of calcified renal stones or hydronephrosis. 2. Prominent uterus. 3. No acute pathology. Girish Norris MD on March 12, 2017 at 16:10 Board Certified Radiologist. This report was verified electronically.
[2017-03-12] MEDS ORDERED: IBUP-232 PO (16:21)
[2017-03-12] MEDS ORDERED: BACT800T5 PO (16:21)
== END 2017-03-12 16:52 | disposition home or self-care (01) ==
LOC: PHED 13:36
DX: N12 Tubulo-interstitial nephritis, not specified as acute or chronic (principal); B96.20 Unspecified Escherichia coli [E. coli] as the cause of diseases classified elsewhere; R11.2 Nausea with vomiting, unspecified; Z72.0 Tobacco use
CPT/HCPCS: 74176; 80053; 81001; 83690; 84703; 85025; 87077; 87086; 87186; 96365; 96375; 96376; 99285; J0696; J2270; J2405; J7030

== ENCOUNTER 2017-05-13 10:18 | Emergency (ER) | payer MEDICAID ==
[~2017-05-13] VITALS: Ht 167.6 cm; Wt 62.0 kg
[~2017-05-13 10:18] MED LIST changes: +BACT800T5 PO; -CARB300C7 PO; +CLON.5 PO; -CLON1 PO; +IBUP-232 PO; +TEGR200T PO
[2017-05-13 10:21] VITALS: BP 121/65; PULSE 97; RESP 16; TEMP 98.3; O2SAT 98
--- NOTE | 2017-05-13 10:53 | PD ---
HPI Chief Complaint: Cold / Flu Symptoms Time Seen by Provider: 10:42 Travel History International Travel<30 days: No Contact w/Intl Traveler<30days: No Traveled to known affect area: No History of Present Illness HPI This is a 26-year-old female who presents for flulike symptoms. She states that she has had 3 days of mild nasal congestion, nonproductive cough and body aches. No rash, neck pain or stiffness. No fever, chills. She states that her significant other was diagnosed with influenza recently. She denies associated nausea, vomiting, diarrhea. Normal oral intake, urine output. Mildly sore throat. No difficulty breathing, speaking, swallowing. No prior treatment. Onset gradual . Symptoms are mild in severity. Patient's last menstrual cycle was May 05 and normal. She does not believe she is . PFSH Past Medical History Hx Anticoagulant Therapy: No Asthma: Yes Bipolar Disorder: Yes Anxiety: Yes Depression: Yes Diabetes: No Diminished Hearing: No Psychiatric: Yes Immunizations Current: Yes Seizures: Yes Tetanus Vaccination: > 5 Years Influenza Vaccination: No ?: Not LMP: 05/05/17 : 2 Para: 2 Past Surgical History Cholecystectomy: Yes Oral Surgery: Yes (wisdom teeth removed) Social History Alcohol Use: No Tobacco Use: Yes (1/2PK/DAY) Substance Use: No Allergies-Medications (Allergen,Severity, Reaction): Coded Allergies: No Known Allergies (Verified Adverse Reaction, Unknown, 05/13/17) Reported Meds & Prescriptions Reported Meds & Active Scripts Active Bactrim DS (Sulfamethoxazole-Trimethoprim) 800-160 Mg Tab 1 Tab PO BID Ibuprofen 600 Mg Tab 600 Mg PO Q6H PRN Reported Lamictal (Lamotrigine) 150 Mg Tab 150 Mg PO BID Aptiom (Eslicarbazepine) 800 Mg Tab 800 Mg PO DAILY Tegretol (Carbamazepine) 200 Mg Tab 200 Mg PO BID Klonopin (Clonazepam) 0.5 Mg Tab 0.25 Mg PO BID Zoloft (Sertraline HCl) 50 Mg Tab 150 Mg PO DAILY Review of Systems Except as stated in HPI: all other systems reviewed are Neg Physical Exam Narrative GENERAL: Alert, well nourished, well appearing patient resting on the bed in no acute distress. Vital Signs reviewed SKIN: Focused skin assessment warm/dry. HEAD: Atraumatic. Normocephalic. EYES: Pupils equal and round. No scleral icterus. No injection or drainage. ENT: No nasal bleeding or discharge. Mucous membranes pink and moist. TMs are clear bilaterally. No tenderness over the mastoids. Posterior oropharynx with no erythema, edema, exudate. Uvula is midline. Breathing, speaking, swallowing without difficulty. NECK: Trachea midline. No JVD. Spontaneous, painless full range of motion with no meningismus CARDIOVASCULAR: Regular rate and rhythm. No murmur appreciated. Extremities warm and well perfused with bounding peripheral pulses RESPIRATORY: No accessory muscle use. Clear to auscultation. Breath sounds equal bilaterally. Breathing easily and speaking in full sentences GASTROINTESTINAL: Abdomen soft, non-tender, nondistended. Normal bowel sounds. No rigid, rebound, guarding. No organomegaly NEUROLOGICAL: Awake and alert. No obvious cranial nerve deficits. Motor grossly within normal limits. Normal speech. Sensation intact. Normal gait Data Data Last Documented VS Vital Signs Date Time Temp Pulse Resp B/P (MAP) Pulse Ox O2 Delivery O2 Flow Rate FiO2 05/13/17 10:49 Room Air 05/13/17 10:21 98.3 97 16 121/65 (83) 98 Orders Orders Group A Rapid Strep Screen (05/13/17 10:46) Influenzae A/B Antigen (05/13/17 10:46) Strep Culture (Group A) (05/13/17 10:55) MDM Medical Decision Making Medical Screen Exam Complete: Yes Emergency Medical Condition: Yes Medical Record Reviewed: Yes Interpretation(s) Date/Time Source Procedure Growth Status 05/13/17 10:55 Throat Group A Streptococcus Screen Pending Received 05/13/17 10:55 Nasal Aspirate Influenza Types A,B Antigen ([facility]) - Final NEGATIVE FOR FLU A AND B ANTIGEN.... Complete 05/13/17 10:55 Throat Group A Streptococcus Screen ([facility]) - Final Complete Differential Diagnosis Upper respiratory infection, bronchitis, influenza, pharyngitis Narrative Course The patient appears very well. She is afebrile. She is breathing easily and speaking in full sentences. Influenza and rapid flu test are negative. Patient appears to have viral upper respiratory infection. I do not feel she would benefit from antibiotics. I reviewed the results of the workup with her at 11:20 AM. We discussed plan for discharge with supportive care and close outpatient follow-up. Patient understands the importance of close outpatient follow-up. She understands she may require further testing and treatment as an outpatient. She understands strict return indications. She is comfortable with this plan and eager to go home. Diagnosis Primary Impression: Upper respiratory infection Qualified Codes: J06.9 - Acute upper respiratory infection, unspecified Referrals: Primary Care Physician 2 days Patient Instructions: General Instructions, Upper Respiratory Infection (DC) Additional Instructions: Drink plenty of fluids to stay well hydrated. Okay to take Tylenol/ibuprofen as needed for pain. Follow-up with primary physician within 2 days for recheck. Med/Other Pt SpecificInfo: No Change to Meds Disposition: 01 DISCHARGE HOME Condition: Stable Anjali Phelan MD May 13, 2017 10:53
[2017-05-13] MEDS ORDERED: LAMO150 PO (10:54)
[2017-05-13] MEDS ORDERED: ESLI1TAB4 PO (10:54)
== END 2017-05-13 11:34 | disposition home or self-care (01) ==
LOC: PHEFT 10:18
DX: J06.9 Acute upper respiratory infection, unspecified (principal); J45.909 Unspecified asthma, uncomplicated; F31.9 Bipolar disorder, unspecified; F41.9 Anxiety disorder, unspecified; F17.210 Nicotine dependence, cigarettes, uncomplicated; Z20.828 Contact with and (suspected) exposure to other viral communicable diseases; Z79.899 Other long term (current) drug therapy
CPT/HCPCS: 87081; 87804; 87880; 99283

== ENCOUNTER 2017-06-09 21:38 | Emergency (ER) | payer MEDICAID ==
[~2017-06-09] VITALS: Ht 165.1 cm; Wt 60.0 kg
[2017-06-09] MEDS: SODIUM CHLOR 0.9% 1000 ML INJ 1,000 ML IV SCH ×2 (21:30→22:00)
[~2017-06-09 21:38] MED LIST changes: +ESLI1TAB4 PO; -OMEP20TA93 PO
[2017-06-09 21:42] VITALS: BP 114/67; PULSE 78; RESP 16; TEMP 99; O2SAT 98
[2017-06-09] MEDS ORDERED: LAMO200T PO (21:51)
[2017-06-09] MEDS ORDERED: OMEP20TA93 PO (21:51)
--- NOTE | 2017-06-09 21:57 | PD ---
HPI Chief Complaint: Abdominal Pain Time Seen by Provider: 21:42 Travel History International Travel<30 days: No Contact w/Intl Traveler<30days: No Traveled to known affect area: No History of Present Illness HPI The patient is a 26-year-old female that since yesterday has been vomiting. She denies any diarrhea. She has midline epigastric pain which she ascribes to the vomiting. She feels dehydrated. She states she is unable to hold down liquids today. The patient states she is very weak. She smokes one half pack a day. The epigastric pain is 4/10 and she describes it as stabbing sensation. She does have a mild cough productive of green sputum. PFSH Past Medical History Hx Anticoagulant Therapy: No Asthma: Yes Bipolar Disorder: Yes Anxiety: Yes Depression: Yes Diabetes: No Diminished Hearing: No Psychiatric: Yes Immunizations Current: Yes Seizures: Yes Tetanus Vaccination: > 5 Years ?: Unknown LMP: 06/05/17 : 2 Para: 2 Past Surgical History Cholecystectomy: Yes Oral Surgery: Yes (wisdom teeth removed) Social History Alcohol Use: No Tobacco Use: Yes (1/2PK/DAY) Substance Use: No Allergies-Medications (Allergen,Severity, Reaction): Coded Allergies: No Known Allergies (Verified Adverse Reaction, Unknown, 06/09/17) Reported Meds & Prescriptions Reported Meds & Active Scripts Active Reported Omeprazole 20 Mg Tab 20 Mg PO DAILY Lamotrigine 200 Mg Tab 200 Mg PO DAILY Tegretol (Carbamazepine) 200 Mg Tab 200 Mg PO BID Klonopin (Clonazepam) 0.5 Mg Tab 0.5 Mg PO BID Zoloft (Sertraline HCl) 50 Mg Tab 150 Mg PO DAILY Review of Systems Except as stated in HPI: all other systems reviewed are Neg Physical Exam Narrative GENERAL: The patient is alert, oriented 3 in slight apparent distress with her midline epigastric discomfort. Her vital signs are normal. She appears moderately dehydrated. SKIN: Focused skin assessment warm/dry. HEAD: Atraumatic. Normocephalic. EYES: Pupils equal and round. No scleral icterus. No injection or drainage. ENT: No nasal bleeding or discharge. Mucous membranes pink and moist. NECK: Trachea midline. No JVD. CARDIOVASCULAR: Regular rate and rhythm. No murmur appreciated. RESPIRATORY: No accessory muscle use. Clear to auscultation. Breath sounds equal bilaterally. GASTROINTESTINAL: Abdomen soft, with tenderness to direct palpation in the midline epigastrium, nondistended. Hepatic and splenic margins not palpable. MUSCULOSKELETAL: No obvious deformities. No clubbing. No cyanosis. No edema. NEUROLOGICAL: Awake and alert. No obvious cranial nerve deficits. Motor grossly within normal limits. Normal speech. PSYCHIATRIC: Appropriate mood and affect; insight and judgment normal. Data Data Last Documented VS Vital Signs Date Time Temp Pulse Resp B/P (MAP) Pulse Ox O2 Delivery O2 Flow Rate FiO2 06/09/17 22:08 16 99 Room Air 06/09/17 21:42 99.0 78 114/67 (83) Orders Orders Beta Hcg (Quant/Titer) (06/09/17 21:52) Complete Blood Count With Diff (06/09/17 21:52) Comprehensive Metabolic Panel (06/09/17 21:52) Lipase (06/09/17 21:52) Urinalysis - C+S If Indicated (06/09/17 21:52) Iv Access Insert/Monitor (06/09/17 21:52) Ecg Monitoring (06/09/17 21:52) Oximetry (06/09/17 21:52) Sodium Chloride 0.9% Flush (Ns Flush) (06/09/17 22:00) Sodium Chlor 0.9% 1000 Ml Inj (Ns 1000 M (06/09/17 22:00) Chest, Pa & Lat (06/09/17 22:05) Labs Laboratory Tests Test 06/09/17 21:57 White Blood Count 8.4 TH/MM3 Red Blood Count 4.23 MIL/MM3 Hemoglobin 13.6 GM/DL Hematocrit 40.2 % Mean Corpuscular Volume 94.9 FL Mean Corpuscular Hemoglobin 32.2 PG Mean Corpuscular Hemoglobin Concent 33.9 % Red Cell Distribution Width 12.4 % Platelet Count 250 TH/MM3 Mean Platelet Volume 8.2 FL Neutrophils (%) (Auto) 70.0 % Lymphocytes (%) (Auto) 24.5 % Monocytes (%) (Auto) 4.9 % Eosinophils (%) (Auto) 0.3 % Basophils (%) (Auto) 0.3 % Neutrophils # (Auto) 5.9 TH/MM3 Lymphocytes # (Auto) 2.1 TH/MM3 Monocytes # (Auto) 0.4 TH/MM3 Eosinophils # (Auto) 0.0 TH/MM3 Basophils # (Auto) 0.0 TH/MM3 CBC Comment DIFF FINAL Differential Comment Urine Collection Type CLEAN CATCH Urine Color YELLOW Urine Turbidity CLEAR Urine pH 7.0 Urine Specific [place] LESS/EQUAL 1.005 Urine Protein NEG mg/dL Urine Glucose (UA) NEG mg/dL Urine Ketones NEG mg/dL Urine Occult Blood NEG Urine Nitrite NEG Urine Bilirubin NEG Urine Urobilinogen 0.2 MG/DL Urine Leukocyte Esterase NEG Urine Squamous Epithelial Cells 0-5 /hpf Microscopic Urinalysis Comment CULT NOT INDICATED Blood Urea Nitrogen 9 MG/DL Creatinine 0.75 MG/DL Random Glucose 85 MG/DL Total Protein 7.0 GM/DL Albumin 3.7 GM/DL Calcium Level 8.1 MG/DL Alkaline Phosphatase 51 U/L Aspartate Amino Transf (AST/SGOT) 17 U/L Alanine Aminotransferase (ALT/SGPT) 24 U/L Total Bilirubin 0.2 MG/DL Sodium Level 137 MEQ/L Potassium Level 3.5 MEQ/L Chloride Level 103 MEQ/L Carbon Dioxide Level 29.4 MEQ/L Anion Gap 5 MEQ/L Estimat Glomerular Filtration Rate 93 ML/MIN Lipase 73 U/L Human Chorionic Gonadotropin, Quant LESS THAN 1 MIU/ML MDM Medical Decision Making Medical Screen Exam Complete: Yes Emergency Medical Condition: Yes Medical Record Reviewed: Yes Interpretation(s) The chest x-ray shows no acute disease. The complete metabolic profile shows a calcium of 8.1 but is otherwise normal. The beta-hCG is less than 1 and the lipase is normal. The CBC is normal. The urinalysis is normal. Differential Diagnosis Pneumonia, gastritis, ulcer pain, pancreatitis, dehydration Narrative Course It is now 10:25 PM and the patient is successfully sipping Gatorade. Diagnosis Primary Impression: Gastritis Additional Impression: Mild dehydration Additional Instructions: As we discussed, it is extremely important to stay hydrated. Dehydration will make weak and tired. Follow-up with your primary care physician this week or early next week. Take the Zofran regularly, 1 tablet 3 times daily until you are confident you can hold down liquids. Med/Other Pt SpecificInfo: Prescription(s) given Scripts Ondansetron (Zofran) 8 Mg Tab 8 MG PO TID for Nausea/Vomiting, #21 TAB 0 Refills Prov: Jeff Carreno MD 3/27/18 Disposition: 01 DISCHARGE HOME Condition: Stable Jeff Carreno MD Jun 09, 2017 21:57
[2017-06-09] MEDS ORDERED: SODIUM CHLORIDE 0.9% FLUSH 10 ML FLUSH IV FLUSH PRN (22:00)
[2017-06-09 22:08] VITALS: RESP 16; O2SAT 99
[2017-06-09 22:09] LABS: AUTOMATED NEUTROPHIL # 5.9 TH/MM3 (1.8-7.7); BASOPHIL % 0.3 % (0.0-2.0); BILIRUBIN, URINE NEG (NEG); BLOOD, URINE NEG (NEG); EOSINOPHIL % 0.3 % (0.0-4.0); GLUCOSE,URINE NEG (NEG); HEMATOCRIT 40.2 % (35.0-46.0); HEMOGLOBIN 13.6 GM/DL (11.6-15.3); KETONE, URINE NEG (NEG); LYMPH % 24.5 % (9.0-44.0); LYMPHOCYTE # 2.1 TH/MM3 (1.0-4.8); MEAN CELL VOLUME 94.9 FL (80.0-100.0); MEAN CORPUSCULAR HEMOGLOBIN 32.2 PG (27.0-34.0); MEAN CORPUSCULAR HGB CONC 33.9 % (32.0-36.0); MEAN PLATELET VOLUME 8.2 FL (7.0-11.0); MONO % 4.9 % (0.0-8.0); MONOCYTE # 0.4 TH/MM3 (0-0.9); NITRITE,URINE NEG (NEG); PLATELET COUNT 250 TH/MM3 (150-450); RED BLOOD COUNT 4.23 MIL/MM3 (4.00-5.30); RED CELL DISTRIBUTION WIDTH 12.4 % (11.6-17.2); URINE COLOR YELLOW (YELLW/STRAW); URINE LEUKOCYTE ESTERASE NEG (NEG); WHITE BLOOD COUNT 8.4 TH/MM3 (4.0-11.0)
[2017-06-09 22:14] LABS: SQUAMOUS EPITHELIAL CELL URINE 0-5 /hpf (0-5)
[2017-06-09 22:15] LABS: CHLORIDE 103 MEQ/L (98-107); SODIUM (NA) 137 MEQ/L (136-145)
[2017-06-09 22:19] LABS: ALBUMIN 3.7 GM/DL (3.4-5.0); BICARBONATE 29.4 MEQ/L (21.0-32.0); BLOOD UREA NITROGEN 9 MG/DL (7-18); CALCIUM 8.1 MG/DL (8.5-10.1); GLUCOSE,RANDOM 85 MG/DL (74-106)
[2017-06-09 22:22] LABS: ALT (GPT) 24 U/L (10-53); AST (GOT) 17 U/L (15-37); CREATININE 0.75 MG/DL (0.50-1.00); GLOMERULAR FILTRATION RATE 93 ML/MIN (>89)
[2017-06-09 22:24] LABS: TOTAL BILIRUBIN ADULT 0.2 MG/DL (0.2-1.0)
[2017-06-09 22:25] LABS: ALKALINE PHOSPHATASE 51 U/L (45-117)
--- NOTE | 2017-06-09 22:44 | RADRPT ---
EXAM DATE/TIME: 06/09/2017 22:11 [facility] COMPARISON: CHEST PA & LAT, September 02, 2016, 16:20. INDICATIONS : Wheezing. MEDICAL HISTORY : Seizures. Asthma. SURGICAL HISTORY : Cholecystectomy. ENCOUNTER: Initial ACUITY: 1 day PAIN SCORE: 0/10 LOCATION: Bilateral chest FINDINGS: PA and lateral views of the chest demonstrate the lungs to be symmetrically aerated without evidence of mass, infiltrate or effusion. The cardiomediastinal contours are unremarkable. Osseous structure s are intact. Clips are seen in the report of the abdomen. CONCLUSION: No acute disease. Dallas Lu MD on June 09, 2017 at 22:42 Board Certified Radiologist. This report was verified electronically.
[2017-06-09] MEDS ORDERED: ZOFR8TAB PO (22:49)
== END 2017-06-09 23:00 | disposition home or self-care (01) ==
LOC: PHED 21:38
DX: K29.70 Gastritis, unspecified, without bleeding (principal); E86.0 Dehydration; F41.9 Anxiety disorder, unspecified; J45.909 Unspecified asthma, uncomplicated; F31.9 Bipolar disorder, unspecified; F17.210 Nicotine dependence, cigarettes, uncomplicated
CPT/HCPCS: 71046; 80053; 81001; 83690; 84702; 85025; 96360; 99284; J7030

== ENCOUNTER 2017-07-18 15:56 | Emergency (ER) | payer MEDICAID ==
[~2017-07-18] VITALS: Ht 162.6 cm; Wt 61.1 kg
[~2017-07-18 15:56] MED LIST changes: -BACT800T5 PO; -ESLI1TAB4 PO; -IBUP-232 PO; -LAMO150 PO; +LAMO200T PO; +OMEP20TA93 PO; +ZOFR8TAB PO
[2017-07-18 16:08] VITALS: BP 123/69; PULSE 83; RESP 18; TEMP 97.9; O2SAT 98
[2017-07-18] MEDS ORDERED: ESLI1TAB4 PO (16:49)
[2017-07-18] MEDS ORDERED: SODIUM CHLOR 0.9% 1000 ML INJ 1,000 ML IV ONE (17:06)
--- NOTE | 2017-07-18 17:14 | PD ---
HPI Chief Complaint: Seizure Time Seen by Provider: 16:55 Travel History International Travel<30 days: No Contact w/Intl Traveler<30days: No Traveled to known affect area: No History of Present Illness HPI 26-year-old female presents to the emergency department for evaluation of seizure. Patient states that she has seizure in her sleep. Her significant other witnessed. She states that she bit her lip and had scratches to her right neck. Her significant other states that she was postictal after the seizure. Patient does have history of seizure disorder. She is on Tegretol and Lamictal. She states she takes these as prescribed. She denies any symptoms or complaints at this time. Moderate severity. Patient denies PFSH Past Medical History Hx Anticoagulant Therapy: No Asthma: Yes Bipolar Disorder: Yes Anxiety: Yes Depression: Yes Diabetes: No Diminished Hearing: No Psychiatric: Yes Immunizations Current: Yes Seizures: Yes ?: Not LMP: NOW : 2 Para: 2 Past Surgical History Cholecystectomy: Yes Oral Surgery: Yes (wisdom teeth removed) Social History Alcohol Use: No Tobacco Use: Yes (1/2PK/DAY) Substance Use: No Allergies-Medications (Allergen,Severity, Reaction): Coded Allergies: No Known Allergies (Verified Adverse Reaction, Unknown, 06/09/17) Reported Meds & Prescriptions Reported Meds & Active Scripts Active Reported Aptiom (Eslicarbazepine) 800 Mg Tab 800 Mg PO DAILY Omeprazole 20 Mg Tab 20 Mg PO DAILY Lamotrigine 200 Mg Tab 200 Mg PO DAILY Tegretol (Carbamazepine) 200 Mg Tab 200 Mg PO BID Klonopin (Clonazepam) 0.5 Mg Tab 0.5 Mg PO BID Zoloft (Sertraline HCl) 50 Mg Tab 150 Mg PO DAILY Review of Systems Except as stated in HPI: all other systems reviewed are Neg Physical Exam Narrative GENERAL: Well-nourished, well-developed female patient, afebrile. SKIN: Focused skin assessment warm/dry. Patient has abrasions to the right neck. HEAD: Normocephalic. Atraumatic ENT: Mucosa pink and moist. No erythema or exudates. No uvular edema. No uvular , palatal, or tonsillar deviation. Airway patent. Nasal turbinates appear normal without nasal blood, purulent drainage or septal hematoma. Bilateral tympanic membranes clear without erythema or perforation. EYES: No scleral icterus. No injection or drainage. NECK: Supple, trachea midline. No JVD or lymphadenopathy. CARDIOVASCULAR: Regular rate and rhythm without murmurs, gallops, or rubs. Bilateral radial and pedal pulses are 2+ RESPIRATORY: Breath sounds equal bilaterally. No accessory muscle use. Lung sounds are clear to auscultation. GASTROINTESTINAL: Abdomen soft, non-tender, nondistended. MUSCULOSKELETAL: No cyanosis, or edema. BACK: Nontender without obvious deformity. No CVA tenderness. Data Data Last Documented VS Vital Signs Date Time Temp Pulse Resp B/P (MAP) Pulse Ox O2 Delivery O2 Flow Rate FiO2 07/18/17 17:44 97 07/18/17 17:30 78 20 111/66 (81) Room Air 07/18/17 16:08 97.9 Orders Orders Complete Blood Count With Diff (07/18/17 17:06) Basic Metabolic Panel (Bmp) (07/18/17 17:06) Carbamazepine (Tegretol) (07/18/17 17:06) Blood Glucose (07/18/17 17:06) Ecg Monitoring (07/18/17 17:06) Iv Access Insert/Monitor (07/18/17 17:06) Oximetry (07/18/17 17:06) Sodium Chlor 0.9% 1000 Ml Inj (Ns 1000 M (07/18/17 17:06) Sodium Chloride 0.9% Flush (Ns Flush) (07/18/17 17:15) Urinalysis - C+S If Indicated (07/18/17 17:06) Ed Urine Pregnancytest Poc (07/18/17 17:06) Magnesium (Mg) (07/18/17 17:06) Lorazepam (Ativan) (07/18/17 17:15) Ondansetron Inj (Zofran Inj) (07/18/17 17:30) Ed Discharge Order (07/18/17 19:45) Labs Laboratory Tests Test 07/18/17 17:15 07/18/17 17:20 White Blood Count 6.4 TH/MM3 Red Blood Count 4.39 MIL/MM3 Hemoglobin 14.1 GM/DL Hematocrit 41.6 % Mean Corpuscular Volume 94.8 FL Mean Corpuscular Hemoglobin 32.1 PG Mean Corpuscular Hemoglobin Concent 33.9 % Red Cell Distribution Width 11.9 % Platelet Count 223 TH/MM3 Mean Platelet Volume 8.4 FL Neutrophils (%) (Auto) 53.3 % Lymphocytes (%) (Auto) 34.2 % Monocytes (%) (Auto) 8.7 % Eosinophils (%) (Auto) 2.0 % Basophils (%) (Auto) 1.8 % Neutrophils # (Auto) 3.4 TH/MM3 Lymphocytes # (Auto) 2.2 TH/MM3 Monocytes # (Auto) 0.6 TH/MM3 Eosinophils # (Auto) 0.1 TH/MM3 Basophils # (Auto) 0.1 TH/MM3 CBC Comment DIFF FINAL Differential Comment Blood Urea Nitrogen 7 MG/DL Creatinine 0.80 MG/DL Random Glucose 88 MG/DL Calcium Level 8.7 MG/DL Magnesium Level 2.6 MG/DL Sodium Level 140 MEQ/L Potassium Level 3.5 MEQ/L Chloride Level 107 MEQ/L Carbon Dioxide Level 27.1 MEQ/L Anion Gap 6 MEQ/L Estimat Glomerular Filtration Rate 86 ML/MIN Urine Collection Type CLEAN CATCH Urine Color YELLOW Urine Turbidity CLOUDY Urine pH 5.5 Urine Specific [place] 1.025 Urine Protein NEG mg/dL Urine Glucose (UA) NEG mg/dL Urine Ketones NEG mg/dL Urine Occult Blood MOD Urine Nitrite NEG Urine Bilirubin NEG Urine Urobilinogen 0.2 MG/DL Urine Leukocyte Esterase NEG Urine WBC 0-2 /hpf Urine Squamous Epithelial Cells 0-5 /hpf Urine Amorphous Sediment MOD Microscopic Urinalysis Comment CULT NOT INDICATED MDM Medical Decision Making Medical Screen Exam Complete: Yes Emergency Medical Condition: Yes Medical Record Reviewed: Yes Differential Diagnosis Breakthrough seizure versus recurrent seizures versus electrolyte abnormality Narrative Course 26-year-old female presents to the emergency department for evaluation after a seizure that occurred while sleeping. Her significant other witnessed the seizure. She has history of seizures. According to the chart, she has been seen multiple times in the past for seizures. IV access established. CBC, BMP , magnesium, UA, urine test ordered and pending. Patient is given Ativan 1 mg p.o., normal saline 1 L IV bolus. CBC is unremarkable. BMP is unremarkable. Magnesium is2.6. UA is negative for acute infection. Tegretol level has not yet returned. ED UPT is negative. 183 -I contact the lab regarding Tegretol level. He states they will check up on it. Has to be sent to the main to be run. 1939 -lab was contacted again who states that the lab has not even been sent to the main at this point. It will be several hours before result is given. I discussed this with my attending physician, Dr. Carreno, who states that as long the patient has no evidence of toxicity, she can be discharged to call in the morning for her Tegretol result. Discussed the patient who wishes to be discharged. She states that she will call in the morning to get her Tegretol result. She states she has been on the same dosage for 2 years has never been toxic before. Patient has no evidence of Tegretol toxicity. She will be discharged to call in the morning for her results Patient instructed to follow with her neurologist. She is return for any acute worsening of symptoms Diagnosis Primary Impression: Recurrent seizures Referrals: Neurologist call for appointment Patient Instructions: General Instructions, Recurrent Seizures in Adults (ED) Additional Instructions: Please call the emergency department in the morning to get your Tegretol level results. Follow-up with your neurologist. No driving. Return to the emergency department for any acute worsening of symptoms Med/Other Pt SpecificInfo: Prescription(s) given, No Change to Meds Scripts Ondansetron Odt (Ondansetron Odt) 4 Mg Tab 4 MG SL Q6HR Y for Nausea/Vomiting, #16 TAB 0 Refills Prov: Danielle Gomez 07/18/17 Disposition: 01 DISCHARGE HOME Condition: Stable Danielle Gomez July 18, 2017 17:14
[2017-07-18] MEDS ORDERED: LORazepam 1 MG TAB PO ONE (17:15)
[2017-07-18] MEDS ORDERED: SODIUM CHLORIDE 0.9% FLUSH 10 ML FLUSH IVF PRN (17:15)
[2017-07-18 17:30] VITALS: BP 111/66; PULSE 78; RESP 20; O2SAT 95
[2017-07-18] MEDS ORDERED: ONDANSETRON HCL 4 MG/2 ML VIAL IV PUSH ONE (17:30)
[2017-07-18 17:36] LABS: BILIRUBIN, URINE NEG (NEG); BLOOD, URINE MOD (NEG); GLUCOSE,URINE NEG (NEG); KETONE, URINE NEG (NEG); NITRITE,URINE NEG (NEG); PH, URINE 5.5 (5.0-8.5); URINE COLOR YELLOW (YELLW/STRAW); URINE LEUKOCYTE ESTERASE NEG (NEG)
[2017-07-18 17:37] LABS: AUTOMATED NEUTROPHIL # 3.4 TH/MM3 (1.8-7.7); BASOPHIL # 0.1 TH/MM3 (0-0.2); BASOPHIL % 1.8 % (0.0-2.0); EOSINOPHIL # 0.1 TH/MM3 (0-0.4); HEMATOCRIT 41.6 % (35.0-46.0); HEMOGLOBIN 14.1 GM/DL (11.6-15.3); LYMPH % 34.2 % (9.0-44.0); LYMPHOCYTE # 2.2 TH/MM3 (1.0-4.8); MEAN CELL VOLUME 94.8 FL (80.0-100.0); MEAN CORPUSCULAR HEMOGLOBIN 32.1 PG (27.0-34.0); MEAN CORPUSCULAR HGB CONC 33.9 % (32.0-36.0); MEAN PLATELET VOLUME 8.4 FL (7.0-11.0); MONO % 8.7 % (0.0-8.0); MONOCYTE # 0.6 TH/MM3 (0-0.9); NEUT % 53.3 % (16.0-70.0); PLATELET COUNT 223 TH/MM3 (150-450); RED BLOOD COUNT 4.39 MIL/MM3 (4.00-5.30); RED CELL DISTRIBUTION WIDTH 11.9 % (11.6-17.2); WHITE BLOOD COUNT 6.4 TH/MM3 (4.0-11.0)
[2017-07-18 17:44] VITALS: O2SAT 97
[2017-07-18 17:45] LABS: SQUAMOUS EPITHELIAL CELL URINE 0-5 /hpf (0-5); WBC, URINE 0-2 /hpf (0-5)
[2017-07-18 17:46] LABS: AMORPHOUS SEDIMENT, URINE MOD
[2017-07-18 17:59] LABS: CALCIUM 8.7 MG/DL (8.5-10.1)
[2017-07-18 18:00] LABS: BICARBONATE 27.1 MEQ/L (21.0-32.0); MAGNESIUM 2.6 MG/DL (1.5-2.5)
[2017-07-18 18:03] LABS: CREATININE 0.8 MG/DL (0.50-1.00)
[2017-07-18] MEDS ORDERED: ONDA4TAB7 SL (19:48)
[2017-07-18 20:25] LABS: CARBAMAZEPINE (TEGRETOL) 4.2 MCG/ML (4.0-12.0)
[2017-07-18 20:28] VITALS: BP 104/65
== END 2017-07-18 20:29 | disposition home or self-care (01) ==
LOC: PHED 15:56 → PHEFT 20:29
DX: G40.909 Epilepsy, unspecified, not intractable, without status epilepticus (principal); F31.9 Bipolar disorder, unspecified; F41.9 Anxiety disorder, unspecified; J45.909 Unspecified asthma, uncomplicated; F17.200 Nicotine dependence, unspecified, uncomplicated
CPT/HCPCS: 80048; 80156; 81001; 83735; 84703; 85025; 96374; 99284; J2405; J7030

== ENCOUNTER 2017-12-29 19:27 | Observation (INO) ==
--- NOTE | 2017-12-29 19:52 | ED ---
HPI General Chief complaint: Seizure Stated complaint: Seizure Time Seen by Provider: 12/29/17 19:38 Source: patient Mode of arrival: ambulatory Limitations: no limitations History of Present Illness HPI narrative: 27yo F with PMH of seizure on tegretol and lamictal here for evaluation after a seizure today. EVAC brought patient here and said she was post ictal but now is awake and alert. Said her 10 year old son witnessed the seizure but he does not know the details. Pt does not remember what happened but has a hematoma on left forehead and abrasions on left upper abdomen. Has pain where the abrasions are. Denies any headache, visual changes, chest pain, sob, n/v, abdominal pain, focal weakness or numbness. States she is compliant with her medication. Glucose normal. Related Data Home Medications Medication Instructions Recorded Confirmed carbamazepine 300 mg PO BID 12/29/17 12/29/17 clonazepam [Klonopin] 0.5 mg PO BID 12/29/17 12/29/17 eslicarbazepine [Aptiom] 800 mg PO DAILY 12/29/17 12/29/17 lamotrigine 200 mg PO BID 12/29/17 12/29/17 omeprazole 20 ng PO DAILY 12/29/17 12/29/17 sertraline [Zoloft] 100 mg PO DAILY 12/29/17 12/29/17 zonisamide 100 mg PO BID 12/29/17 12/29/17 Allergies Allergy/AdvReac Type Severity Reaction Status Date / Time No Known Allergies Allergy Verified 12/29/17 20:20 Review of Systems ROS: all other systems reviewed are negative [facility] Medical History Medical History Bipolar 1 disorder (Acute) Depression (Acute) Seizures (Acute) Social History Social History Substance History: No History of Abuse Second Hand Smoke Exposure: No Smoking Status: Never smoker How Often Do You Have a Drink Containing Alcohol: Never Recent Travel in [place] within the Last 8 Weeks: No Recent Out of Country Travel within the Last 8 Weeks: No Exam Narrative Exam Narrative: GENERAL: 27yo F in mild distress. SKIN: Focused skin assessment warm/dry. HEAD: +Hematoma and mild ecchymoses left forehead. EYES: Pupils equal and round at 4mm bilaterally. EOMI. ENT: No nasal bleeding or discharge. Mucous membranes pink and moist. NECK: No cervical spine ttp. CARDIOVASCULAR: Regular rate and rhythm. No murmur appreciated. RESPIRATORY: No accessory muscle use. Clear to auscultation. Breath sounds equal bilaterally. GASTROINTESTINAL: Abdomen soft, +Abrasion LUQ with ttp. No rebound tenderness or guarding. MUSCULOSKELETAL: No obvious deformities. No clubbing. No cyanosis. No edema. NEUROLOGICAL: Awake and alert. No obvious cranial nerve deficits. Motor grossly within normal limits in all extremities. Sensation equal bilaterally. Normal speech. Course Initial Documented Vital Signs Pulse Rate 75 12/29/17 19:42 Last Documented Vital Signs Temperature 98.1 F 12/29/17 19:59 Pulse Rate 75 12/29/17 21:14 Respiratory Rate 18 12/29/17 21:14 Blood Pressure 96/56 L 12/29/17 21:14 Pulse Oximetry 98 12/29/17 21:14 Medical Decision Making MDM Narrative Medical decision making narrative: 27yo F with bipolar disorder, seizure disorder here for evaluation after a seizure. Pt does not remember what happened but does have signs of trauma on her head and abdomen. Labs reviewed, no leukocytosis. H/H normal. Mildly decreased CO2 at 19.4. BUN/creatinine elevated at 29/1.20, pt given NS IVF. Carbamazepine level is low at 3.3. Pt said she last took it in the morning, did not take her evening dose. She takes 300mg ER which we dont have so informed pt to take her own medication since she has it with her. CT brain negative. CT a/p showed no acute findings. Pt has been observed in the ED for over 3 hours and has no seizure. Pt is back to baseline. Her mother is here at bedside now and return precautions given. Medical Screen Exam Complete: Yes Emergency Medical Condition: Yes Differential Diagnosis Differential Diagnosis: Seizure secondary to noncompliance vs. intraabdominal trauma vs. ICH vs. electrolyte abnormality Lab Data Result diagrams: 12/29/17 19:50 12/29/17 19:50 POC Results POC Urine Results Negative Lab Results 12/29/17 12/29/17 12/29/17 Range/Units 19:50 19:50 19:50 CBC w Diff Auto diff final WBC 6.8 (4.0-11.0) th/mm3 RBC 4.33 (4.00-5.30) mil/mm3 Hgb 14.2 (11.6-15.3) gm/dL Hct 41.7 (35.0-46.0) % MCV 96.4 (80.0-100.0) fL MCH 32.8 (27.0-34.0) pg MCHC 34.1 (32.0-36.0) % RDW 11.3 L (11.6-17.2) % Plt Count 172 (150-450) th/mm3 MPV 8.6 (7.0-11.0) fL Neut % (Auto) 68.5 (16.0-70.0) % Lymph % (Auto) 23.3 (9.0-44.0) % [place] % (Auto) 6.8 (0.0-8.0) % Eos % (Auto) 0.8 (0.0-4.0) % Baso % (Auto) 0.6 (0.0-2.0) % Neut # (Auto) 4.6 (1.8-7.7) th/mm3 Lymph # (Auto) 1.6 (1.0-4.8) th/mm3 [place] # (Auto) 0.5 (0.0-0.9) th/mm3 Eos # (Auto) 0.1 (0.0-0.4) th/mm3 Baso # (Auto) 0.0 (0.0-0.2) th/mm3 WBC Differential . Differential Comment . Sodium 137 (136-145) meq/L Potassium 4.0 (3.5-5.1) meq/L Chloride 107 (98-107) meq/L Carbon Dioxide 19.4 L (21.0-32.0) meq/L Anion Gap 11 (5-15) meq/L BUN 29 H (7-18) mg/dL Creatinine 1.20 H (0.50-1.00) mg/dL Estimated GFR 53 L (>89) mL/min Random Glucose 107 H (74-106) mg/dL Calcium 8.4 L (8.5-10.1) mg/dL Magnesium 2.4 (1.5-2.5) mg/dL Total Bilirubin 0.1 L (0.2-1.0) mg/dL AST 17 (15-37) U/L ALT 21 (10-53) U/L Alkaline Phosphatase 46 (45-117) U/L Total Protein 7.0 (6.4-8.2) g/dL Albumin 3.9 (3.4-5.0) g/dL Carbamazepine 3.3 L (4.0-12.0) mcg/mL Imaging Data Radiologist's impression: Abdomen/Pelvis CT 12/29/17 19:39 CONCLUSION: 1. No acute findings. Bilateral ovarian cysts as above. Mild constipation. Head CT 12/29/17 19:39 CONCLUSION: 1. No acute intracranial abnormality. . Discharge Plan Discharge Disposition Patient Disposition: Discharge Home Discharge Condition Condition: Stable Discharge Order Discharge Orders: Discharge Order (Routine); Ordered 12/29/17 Ordered By: Natalie Duran Discharge Details Diagnosis: Seizure Physicians Team ED Provider: Natalie Duran Primary Care Provider: Dallas Larose Rxs /Orders / Referrals /Forms Prescriptions: No Action zonisamide 100 mg Capsule 100 mg PO BID RF: 0 eslicarbazepine [Aptiom] 800 mg Tablet 800 mg PO DAILY RF: 0 lamotrigine 200 mg Tablet 200 mg PO BID RF: 0 sertraline [Zoloft] 100 mg Tablet 100 mg PO DAILY RF: 0 clonazepam [Klonopin] 1 mg Tablet 0.5 mg PO BID RF: 0 omeprazole 20 mg Capsule,Delayed Release(Dr/Ec) 20 ng PO DAILY RF: 0 carbamazepine 300 mg Capsule, Er Multiphase 12 Hr 300 mg PO BID RF: 0 Referrals: Mychal Ricks MD [Physician] - Call for Appointment Discharge Instructions Additional Instructions: Please follow up with neurology as outpatient. Continue to take your seizure medications. Return to the ED if symptoms worsen. Status ED Status: Ready for Discharge
[2017-12-29 19:54] LABS: Baso % (Auto) 0.6 % (0.0-2.0); Eos # (Auto) 0.1 th/mm3 (0.0-0.4); Eos % (Auto) 0.8 % (0.0-4.0); Hematocrit 41.7 % (35.0-46.0); Hemoglobin 14.2 gm/dL (11.6-15.3); Lymph # (Auto) 1.6 th/mm3 (1.0-4.8); Lymph % (Auto) 23.3 % (9.0-44.0); Mean Corpuscular HGB Conc 34.1 % (32.0-36.0); Mean Corpuscular Hemoglobin 32.8 pg (27.0-34.0); Mean Corpuscular Volume 96.4 fL (80.0-100.0); Mean Platelet Volume 8.6 fL (7.0-11.0); Mono # (Auto) 0.5 th/mm3 (0.0-0.9); Mono % (Auto) 6.8 % (0.0-8.0); Neut # (Auto) 4.6 th/mm3 (1.8-7.7); Neut % (Auto) 68.5 % (16.0-70.0); Platelet Count 172 th/mm3 (150-450); Red Blood Count 4.33 mil/mm3 (4.00-5.30); Red Cell Distribution Width 11.3 % (11.6-17.2); White Blood Count 6.8 th/mm3 (4.0-11.0)
[2017-12-29 20:01] LABS: Chloride 107 meq/L (98-107); Sodium 137 meq/L (136-145)
[2017-12-29 20:04] VITALS: TEMP 98.1
[2017-12-29 20:04] LABS: Albumin 3.9 g/dL (3.4-5.0); Anion Gap 11 meq/L (5-15); Blood Urea Nitrogen 29 mg/dL (7-18); Calcium 8.4 mg/dL (8.5-10.1); Carbon Dioxide 19.4 meq/L (21.0-32.0); Glucose,Random 107 mg/dL (74-106); Magnesium 2.4 mg/dL (1.5-2.5)
[2017-12-29 20:07] LABS: Alanine Aminotransferase 21 U/L (10-53)
[2017-12-29 20:08] LABS: Aspartate Aminotransferase 17 U/L (15-37); Glomerular Filtration Rate 53 mL/min (>89)
[2017-12-29 20:10] LABS: Alkaline Phosphatase 46 U/L (45-117)
[2017-12-29] MEDS ORDERED: Sod Chloride 0.9% Inj 1,000 ML IV.SIG SCH ×2 (20:15→23:45)
[2017-12-29 21:15] VITALS: O2SAT 98
--- NOTE | 2017-12-29 22:40 | CT ---
EXAM DATE: 12/29/2017 8:43 PM EDT AGE/SEX: 27 years / Female INDICATIONS: Seizure. CLINICAL DATA: This is the patient's initial encounter. Patient reports that signs and symptoms have been present for 1 day and indicates a pain score of 0/10. MEDICAL/SURGICAL HISTORY: Seizures. None. RADIATION DOSE: 54.16 CTDI (mGy) COMPARISON: [facility], CT BRAIN W/O CONTRAST, 09/02/2016. . TECHNIQUE: CT of the head without contrast. Using automated exposure control and adjustment of the mA and/or kV according to patient size, radiation dose was kept as low as reasonably achievable to ob tain optimal diagnostic quality images. DICOM format image data is available electronically for revi ew and comparison. FINDINGS: Cerebrum: The ventricles are normal for age. No evidence of midline shift, mass lesion, hemorrhage or acute infarction. No extraaxial fluid collections are seen. Posterior Fossa: The cerebellum and brainstem are intact. The 4th ventricle is midline. The cerebe llopontine angle is unremarkable. Extracranial: The visualized portion of the orbits is intact. Skull: The calvaria is intact. No evidence of skull fracture. CONCLUSION: 1. No acute intracranial abnormality. . Electronically signed by: Madhav Kuhn MD 12/29/2017 10:39 PM EDT
--- NOTE | 2017-12-29 22:44 | CT ---
EXAM DATE: 12/29/2017 8:43 PM EDT AGE/SEX: 27 years / Female INDICATIONS: Left upper quadrant pain. CLINICAL DATA: This is the patient's initial encounter. Patient reports that signs and symptoms have been present for 1 day and indicates a pain score of 0/10. MEDICAL/SURGICAL HISTORY: Seizures. None. ORAL CONTRAST: No oral contrast ingested. RADIATION DOSE: 6.00 CTDI (mGy) COMPARISON: [facility], CT ABDOMEN & PELVIS W/O CONTRAST, 03/12/2017. . TECHNIQUE: Multiple contiguous axial images were obtained through the abdomen and pelvis following b olus infusion of 100 ml Omnipaque 350 (iohexol) nonionic water-soluble contrast as a single exam do se. No oral contrast ingested. Using automated exposure control and adjustment of the mA and/or kV a ccording to patient size, radiation dose was kept as low as reasonably achievable to obtain optimal d iagnostic quality images. DICOM format image data is available electronically for review and compari son. FINDINGS: Lung bases are clear. No acute findings in the liver, spleen, adrenals, kidneys or pancreas. Previous cholecystectomy. There is a 3.1 cm cyst in the right adnexa is a 1.8 cm cyst right adnexa, likely No evidence for obstructive uropathy or hydronephrosis. No acute findings within the abdomen and pelv is. Mild constipation. CONCLUSION: 1. No acute findings. Bilateral ovarian cysts as above. Mild constipation. Electronically signed by: Madhav Kuhn MD 12/29/2017 10:42 PM EDT
--- NOTE | 2017-12-29 23:33 | ED ---
HPI General Chief complaint: Seizure Stated complaint: Seizure Time Seen by Provider: 12/29/17 19:38 Source: patient Mode of arrival: ambulatory Limitations: no limitations History of Present Illness HPI narrative: 27yo F with bipolar and seizure disorder was brought to the medical bed after being discharged for seizure in the ED. Apparently, pt was standing outside of the ED after discharge and started having a seizure. As per mother, she slam her face onto the wall and then slid down and was foaming in the mouth. Pt was given 2mg of ativan. There is abrasion on her nose and forehead. Will repeat CT brain given new head trauma. Pt placed on compliance monitor and NS IVF. Her neurologist is from [place]. Related Data Home Medications Medication Instructions Recorded Confirmed carbamazepine 300 mg PO BID 12/29/17 12/29/17 clonazepam [Klonopin] 0.5 mg PO BID 12/29/17 12/29/17 eslicarbazepine [Aptiom] 800 mg PO DAILY 12/29/17 12/29/17 lamotrigine 200 mg PO BID 12/29/17 12/29/17 omeprazole 20 ng PO DAILY 12/29/17 12/29/17 sertraline [Zoloft] 100 mg PO DAILY 12/29/17 12/29/17 zonisamide 100 mg PO BID 12/29/17 12/29/17 Allergies Allergy/AdvReac Type Severity Reaction Status Date / Time No Known Allergies Allergy Verified 12/29/17 20:20 Review of Systems ROS: all other systems reviewed are negative [facility] Medical History Medical History Bipolar 1 disorder (Acute) Depression (Acute) Seizures (Acute) Social History Social History Substance History: No History of Abuse Second Hand Smoke Exposure: No Smoking Status: Never smoker How Often Do You Have a Drink Containing Alcohol: Never Recent Travel in [facility] within the Last 8 Weeks: No Recent Out of Country Travel within the Last 8 Weeks: No Immunization History Tetanus Immunization: Unsure Exam Narrative Exam Narrative: GENERAL: 27yo F post ictal. SKIN: Abrasion left eyebrow, nose and chin. No active bleeding or laceration. HEAD: Atraumatic. Normocephalic. EYES: Pupils equal and round at 5mm bilaterally. ENT: No nasal bleeding or discharge. Mucous membranes pink and moist. NECK: Trachea midline. No JVD. CARDIOVASCULAR: Regular rate and rhythm. No murmur appreciated. RESPIRATORY: No accessory muscle use. Clear to auscultation. Breath sounds equal bilaterally. GASTROINTESTINAL: Abdomen soft, non-tender, nondistended. MUSCULOSKELETAL: No obvious deformities. No clubbing. No cyanosis. No edema. NEUROLOGICAL: Post ictal. Course Initial Documented Vital Signs Pulse Rate 75 12/29/17 19:42 Last Documented Vital Signs Temperature 98.1 F 12/29/17 19:59 Pulse Rate 88 12/30/17 03:10 Respiratory Rate 20 12/30/17 03:10 Blood Pressure 98/68 L 12/30/17 03:10 Pulse Oximetry 98 12/29/17 21:14 Medical Decision Making MDM Narrative Medical decision making narrative: 27yo F who has bipolar and seizure disorder here after seizure. Had full work up and discharged from the ED when she was brought back to the medical room for a seizure right outside of the ED witnessed by her mother. Pt was given ativan 2mg IV. She hit her face on the wall and has abrasions on her nose, chin. Mother said she has petit mal seizures as well as grand mal seizures and that this is exactly how her seizure presents. Repeat CT brain and facial ordered and was negative. Pt is sleepy but arousable and opens eyes. At this point, will admit for observation. Discussed with Dr. Perla and accepted to her service. IVF given. BP is a little lower after medication so given NS IVF. BP improved after IVF. Pt has been observed in the ED while waiting for a bed upstairs. Pt is now awake and alert and refusing to stay. Her fiance is here and she said she wants to go home with him. Denies any suicidal or homicidal ideations. Pt is ambulating in the ED without any assistance. AMA: The risks of leaving against medical advice without further evaluation treatment were discussed with the patient. These risks include cardiac dysfunction, cardiac dysrhythmia, possible heart attack, possible stroke or . The patient indicated understanding of these risks and appeared to have the capacity to make this decision. Medical Screen Exam Complete: Yes Emergency Medical Condition: Yes Differential Diagnosis Differential Diagnosis: Seizure vs. pseudoseizure vs. bipolar disorder Lab Data Result diagrams: 12/29/17 19:50 12/29/17 19:50 POC Results POC Urine Results Negative Lab Results 12/29/17 12/29/17 12/29/17 Range/Units 19:50 19:50 19:50 CBC w Diff Auto diff final WBC 6.8 (4.0-11.0) th/mm3 RBC 4.33 (4.00-5.30) mil/mm3 Hgb 14.2 (11.6-15.3) gm/dL Hct 41.7 (35.0-46.0) % MCV 96.4 (80.0-100.0) fL MCH 32.8 (27.0-34.0) pg MCHC 34.1 (32.0-36.0) % RDW 11.3 L (11.6-17.2) % Plt Count 172 (150-450) th/mm3 MPV 8.6 (7.0-11.0) fL Neut % (Auto) 68.5 (16.0-70.0) % Lymph % (Auto) 23.3 (9.0-44.0) % [place] % (Auto) 6.8 (0.0-8.0) % Eos % (Auto) 0.8 (0.0-4.0) % Baso % (Auto) 0.6 (0.0-2.0) % Neut # (Auto) 4.6 (1.8-7.7) th/mm3 Lymph # (Auto) 1.6 (1.0-4.8) th/mm3 [place] # (Auto) 0.5 (0.0-0.9) th/mm3 Eos # (Auto) 0.1 (0.0-0.4) th/mm3 Baso # (Auto) 0.0 (0.0-0.2) th/mm3 WBC Differential . Differential Comment . Sodium 137 (136-145) meq/L Potassium 4.0 (3.5-5.1) meq/L Chloride 107 (98-107) meq/L Carbon Dioxide 19.4 L (21.0-32.0) meq/L Anion Gap 11 (5-15) meq/L BUN 29 H (7-18) mg/dL Creatinine 1.20 H (0.50-1.00) mg/dL Estimated GFR 53 L (>89) mL/min Random Glucose 107 H (74-106) mg/dL Calcium 8.4 L (8.5-10.1) mg/dL Magnesium 2.4 (1.5-2.5) mg/dL Total Bilirubin 0.1 L (0.2-1.0) mg/dL AST 17 (15-37) U/L ALT 21 (10-53) U/L Alkaline Phosphatase 46 (45-117) U/L Total Protein 7.0 (6.4-8.2) g/dL Albumin 3.9 (3.4-5.0) g/dL Carbamazepine 3.3 L (4.0-12.0) mcg/mL Imaging Data Radiologist's impression: Abdomen/Pelvis CT 12/29/17 19:39 CONCLUSION: 1. No acute findings. Bilateral ovarian cysts as above. Mild constipation. Head CT 12/29/17 19:39 CONCLUSION: 1. No acute intracranial abnormality. . Face CT 12/29/17 23:33 CONCLUSION: There is no evidence of acute fracture. Head CT 12/29/17 23:33 CONCLUSION: No evidence of acute intracranial pathology. No masses are identified. . Discharge Plan Discharge Disposition Patient Disposition: 07 Against Medical Advice Discharge Condition Condition: Stable Discharge Order Discharge Orders: AMA Discharge (Routine); Ordered 12/30/17 Ordered By: Natalie Duran Discharge Order (Routine); Ordered 12/29/17 Ordered By: Natalie Duran Discharge Details Diagnosis: Seizure Physicians Team ED Provider: Natalie Duran Primary Care Provider: Dallas Larose Attending Provider: Lilia Perla Status ED Status: Left Department Discharge Information Discharge Date/Time: 12/30/17 03:13
--- NOTE | 2017-12-30 00:11 | CT ---
EXAM DATE: 12/29/2017 11:47 PM EDT AGE/SEX: 27 years / Female INDICATIONS: Seizure. Fall. CLINICAL DATA: This is the patient's subsequent encounter. Patient reports that signs and symptoms h ave been present for 1 day and indicates a pain score of Nonresponsive. MEDICAL/SURGICAL HISTORY: Seizures. None. RADIATION DOSE: 68.61 CTDI (mGy) COMPARISON: [facility], CT HEAD W/O CONTRAST, 12/29/2017. . TECHNIQUE: CT of the head without contrast. Using automated exposure control and adjustment of the mA and/or kV according to patient size, radiation dose was kept as low as reasonably achievable to ob tain optimal diagnostic quality images. DICOM format image data is available electronically for revi ew and comparison. FINDINGS: Noncontrast axial head CT demonstrates the ventricles to be normal in size and configuration with a n ormal sulcal pattern. No acute intracranial hemorrhage, acute cortical infarction, mass or midline sh ift is seen. Contrast is identified within the intracranial vessels.Posterior fossa structures are un remarkable. Bone windows are unremarkable. CONCLUSION: No evidence of acute intracranial pathology. No masses are identified. . Electronically signed by: Flavio Doyle MD 12/30/2017 12:09 AM EDT
--- NOTE | 2017-12-30 00:13 | CT ---
EXAM DATE: 12/29/2017 11:47 PM EDT AGE/SEX: 27 years / Female INDICATIONS: Seizure. Fall. Facial abrasions. CLINICAL DATA: This is the patient's subsequent encounter. Patient reports that signs and symptoms h ave been present for 1 day and indicates a pain score of Nonresponsive. MEDICAL/SURGICAL HISTORY: Seizures. None. RADIATION DOSE: 25.60 CTDI (mGy) COMPARISON: No prior exams available for comparison. TECHNIQUE: Contiguous images in the axial and coronal planes were obtained using helical multirow de tector technique. Using automated exposure control and adjustment of the mA and/or kV according to p atient size, radiation dose was kept as low as reasonably achievable to obtain optimal diagnostic bo lity images. DICOM format image data is available electronically for review and comparison. FINDINGS: CT scan of the facial bones was performed in the axial plane with coronal reconstructions. Soft tissu e windows demonstrate no abnormality. The paranasal sinuses are clear. No fracture is identified. The zygomatic arches are intact. The nasa l bones are unremarkable. Coronal reconstructions demonstrate the orbital floors and rims to be intact. The nasal septum is in the midline. The pterygoid plates are also intact. The body of the mandible, mandibular neck and phillip ibular heads are also unremarkable. CONCLUSION: There is no evidence of acute fracture. Electronically signed by: Flavio Doyle MD 12/30/2017 12:11 AM EDT
[2017-12-30] MEDS ORDERED: Acetaminophen 325 MG Tablet PO PRN (00:48)
[2017-12-30] MEDS ORDERED: Sod Chloride 0.9% Inj 1,000 ML IV.CONT SCH (01:00)
[2017-12-30] MEDS ORDERED: Sod Chloride 0.9% Inj 1,000 ML IV.SIG SCH (01:30)
[2017-12-30 03:13] VITALS: BP 98/68; PULSE 88; RESP 20
[2017-12-30] MEDS ORDERED: clonazePAM 0.5 MG Tablet PO SCH (09:00)
[2017-12-30] MEDS ORDERED: carBAMazepine 200 MG Tablet PO SCH (09:00)
--- NOTE | 2018-01-03 16:11 | P.DIET ---
Nutritional Evaluation Screening comments: NPO ALERT X 4 DAYS. Please consult dietitian as needed.
== END 2017-12-30 03:14 | disposition left against medical advice (07) ==
LOC: PHED 19:27 → PHEDA 19:27
PROVIDERS: ADMIT Internal Medicine; ATTEND Internal Medicine

== ENCOUNTER 2018-01-11 01:13 | Observation (INO) ==
[2018-01-11 01:22] VITALS: TEMP 98.4
[2018-01-11] MEDS ORDERED: levETIRAcetam 1000mg/100mL Inj 100 ML IV.SIG ONE (01:31)
[2018-01-11 01:46] LABS: Baso # (Auto) 0.1 th/mm3 (0.0-0.2); Baso % (Auto) 1.3 % (0.0-2.0); Eos # (Auto) 0.1 th/mm3 (0.0-0.4); Eos % (Auto) 0.9 % (0.0-4.0); Hematocrit 42.4 % (35.0-46.0); Lymph # (Auto) 2.3 th/mm3 (1.0-4.8); Lymph % (Auto) 36.5 % (9.0-44.0); Mean Corpuscular HGB Conc 33.1 % (32.0-36.0); Mean Corpuscular Hemoglobin 32.4 pg (27.0-34.0); Mean Corpuscular Volume 97.9 fL (80.0-100.0); Mean Platelet Volume 8.6 fL (7.0-11.0); Mono # (Auto) 0.5 th/mm3 (0.0-0.9); Mono % (Auto) 7.4 % (0.0-8.0); Neut # (Auto) 3.2 th/mm3 (1.8-7.7); Neut % (Auto) 53.9 % (16.0-70.0); Platelet Count 262 th/mm3 (150-450); Red Blood Count 4.33 mil/mm3 (4.00-5.30); White Blood Count 6.2 th/mm3 (4.0-11.0)
[2018-01-11 01:54] LABS: Chloride 112 meq/L (98-107); Potassium 3.6 meq/L (3.5-5.1); Sodium 143 meq/L (136-145)
[2018-01-11 01:57] LABS: Albumin 3.7 g/dL (3.4-5.0); Anion Gap 12 meq/L (5-15); Calcium 8.6 mg/dL (8.5-10.1); Carbon Dioxide 19.4 meq/L (21.0-32.0); Glucose,Random 98 mg/dL (74-106)
[2018-01-11 01:58] LABS: Blood Urea Nitrogen 11 mg/dL (7-18)
[2018-01-11 02:00] LABS: Alanine Aminotransferase 22 U/L (10-53); Aspartate Aminotransferase 16 U/L (15-37); Glomerular Filtration Rate 59 mL/min (>89)
[2018-01-11 02:02] LABS: Total Protein 6.9 g/dL (6.4-8.2)
[2018-01-11 02:03] LABS: Alkaline Phosphatase 56 U/L (45-117)
[2018-01-11 03:21] VITALS: RESP 18
--- NOTE | 2018-01-11 03:59 | ED ---
HPI General Chief Complaint: Seizure Stated Complaint: poss seizure Time Seen by Provider: 01/11/18 01:24 Source: patient Mode of arrival: other (Boyfriend dropped her in triage and left) Limitations: altered mental status History of Present Illness HPI Narrative: Patient appears lethargic and has been a poor historian. This is a 27-year-old female who was seen at the [facility] emergency room in [place] for seizure and facial injuries. She was discharged home an hour ago and appears to have had another seizure since the discharge. She is lethargic and slow to answer questions with a slur. I was told by the triage nurse that her boyfriend dropped her at the triage and gave this history. Details about the seizure is currently unavailable. The boyfriend apparently had to go to work and left. I did not get a chance to speak with him. Vital signs are relatively stable. She still has the abrasions and the stitches on her face that was done at the [facility]. Patient has history of seizures and is supposed to be on seizure medications. I am not sure if she has been compliant with it. Patient had CAT scan of her head and C-spine done at the [facility] which was within normal limits. As I was trying to get history and physical done on this patient she seemed to get more lethargic and almost look like she was heading towards another impending seizure. Nurse was asked to give the patient IV Ativan stat. complaint: Reports seizure Onset (ago): unknown Related Data Home Medications Medication Instructions Recorded Confirmed carbamazepine 300 mg PO BID 12/29/17 01/10/18 clonazepam [Klonopin] 0.5 mg PO BID 12/29/17 01/10/18 eslicarbazepine [Aptiom] 800 mg PO DAILY 12/29/17 01/10/18 lamotrigine 200 mg PO BID 12/29/17 01/10/18 omeprazole 20 ng PO DAILY 12/29/17 01/10/18 sertraline [Zoloft] 100 mg PO DAILY 12/29/17 01/10/18 zonisamide 100 mg PO BID 12/29/17 01/10/18 Allergies Allergy/AdvReac Type Severity Reaction Status Date / Time No Known Allergies Allergy Verified 01/11/18 01:23 Review of Systems ROS: all other systems reviewed are negative Constitutional Reports lethargy PMFSH Medical History Medical History Bipolar 1 disorder (Acute) Depression (Acute) Seizures (Acute) Social History Social History Substance History: No History of Abuse Second Hand Smoke Exposure: Yes Smoking Status: Current every day smoker Tobacco Type: Cigarettes How Often Do You Have a Drink Containing Alcohol: Unable to Obtain Recent Travel in [facility] within the Last 8 Weeks: No Recent Out of Country Travel within the Last 8 Weeks: No Immunization History Tetanus Immunization: Unsure Exam Narrative Exam Narrative: GENERAL: Lethargic, slurred speech, partially following commands SKIN: Focused skin assessment warm/dry. Abrasions on her nose and forehead HEAD: Stitches on her forehead EYES: Pupils equal and round. No scleral icterus. No injection or drainage. ENT: No nasal bleeding or discharge. Mucous membranes pink and moist. NECK: Trachea midline. No JVD. CARDIOVASCULAR: Regular rate and rhythm. No murmur appreciated. RESPIRATORY: No accessory muscle use. Clear to auscultation. Breath sounds equal bilaterally. GASTROINTESTINAL: Abdomen soft, non-tender, nondistended. Hepatic and splenic margins not palpable. MUSCULOSKELETAL: No obvious deformities. No clubbing. No cyanosis. No edema. NEUROLOGICAL: GCS of 12 with slurred speech. Facial twitching and occasional eyes rolling back PSYCHIATRIC: Appropriate mood and affect; insight and judgment normal. Course Initial Documented Vital Signs Temperature 98.4 F 01/11/18 01:21 Pulse Rate 106 H 01/11/18 01:21 Respiratory Rate 20 01/11/18 01:21 Blood Pressure 119/54 L 01/11/18 01:21 Pulse Oximetry 97 01/11/18 01:21 Last Documented Vital Signs Temperature 98.4 F 01/11/18 01:21 Pulse Rate 88 01/11/18 05:20 Respiratory Rate 18 01/11/18 05:20 Blood Pressure 114/69 01/11/18 05:20 Pulse Oximetry 18 L 01/11/18 05:20 Medical Decision Making MDM Narrative Medical decision making narrative: 3:57 AM blood test results are back and within acceptable limits. Patient's Tegretol level is quite low and it has been consistently getting lower when compared to the past values. This makes me feel that the patient is probably not compliant with her medications. Given the fact that she has had at least 2 seizures in past 24 hours and being noncompliant with medication I would like to admit the patient at least for observation. She was given 1 mg of IV Ativan and 1 g of Keppra upon arrival. She has not had any more seizures while she has been here. Awaiting for the hospitalist to call back. Medical Screen Exam Complete: Yes Emergency Medical Condition: Yes Lab Data Result diagrams: 01/11/18 01:40 01/11/18 01:40 Lab Results 01/11/18 01/11/18 01/11/18 Range/Units 01:40 01:40 01:40 CBC w Diff Auto diff final WBC 6.2 (4.0-11.0) th/mm3 RBC 4.33 (4.00-5.30) mil/mm3 Hgb 14.0 (11.6-15.3) gm/dL Hct 42.4 (35.0-46.0) % MCV 97.9 (80.0-100.0) fL MCH 32.4 (27.0-34.0) pg MCHC 33.1 (32.0-36.0) % RDW 12.0 (11.6-17.2) % Plt Count 262 D (150-450) th/mm3 MPV 8.6 (7.0-11.0) fL Neut % (Auto) 53.9 (16.0-70.0) % Lymph % (Auto) 36.5 (9.0-44.0) % Stanly % (Auto) 7.4 (0.0-8.0) % Eos % (Auto) 0.9 (0.0-4.0) % Baso % (Auto) 1.3 (0.0-2.0) % Neut # (Auto) 3.2 (1.8-7.7) th/mm3 Lymph # (Auto) 2.3 (1.0-4.8) th/mm3 Stanly # (Auto) 0.5 (0.0-0.9) th/mm3 Eos # (Auto) 0.1 (0.0-0.4) th/mm3 Baso # (Auto) 0.1 (0.0-0.2) th/mm3 WBC Differential . Differential Comment . Sodium 143 (136-145) meq/L Potassium 3.6 (3.5-5.1) meq/L Chloride 112 H (98-107) meq/L Carbon Dioxide 19.4 L (21.0-32.0) meq/L Anion Gap 12 (5-15) meq/L BUN 11 (7-18) mg/dL Creatinine 1.10 H (0.50-1.00) mg/dL Estimated GFR 59 L (>89) mL/min Random Glucose 98 (74-106) mg/dL Calcium 8.6 (8.5-10.1) mg/dL Total Bilirubin 0.2 (0.2-1.0) mg/dL AST 16 (15-37) U/L ALT 22 (10-53) U/L Alkaline Phosphatase 56 (45-117) U/L Total Protein 6.9 (6.4-8.2) g/dL Albumin 3.7 (3.4-5.0) g/dL Urine Opiates Screen (Neg) Ur Barbiturates Screen (Neg) Carbamazepine 1.2 L (4.0-12.0) mcg/mL Ur Amphetamines Screen (Neg) U Benzodiazepines Scrn (Neg) Urine Cocaine Screen (Neg) U Cannabinoids Screen (Neg) Serum Alcohol Less than 3 (0-5) mg/dL 01/11/18 Range/Units 05:13 CBC w Diff WBC (4.0-11.0) th/mm3 RBC (4.00-5.30) mil/mm3 Hgb (11.6-15.3) gm/dL Hct (35.0-46.0) % MCV (80.0-100.0) fL MCH (27.0-34.0) pg MCHC (32.0-36.0) % RDW (11.6-17.2) % Plt Count (150-450) th/mm3 MPV (7.0-11.0) fL Neut % (Auto) (16.0-70.0) % Lymph % (Auto) (9.0-44.0) % Stanly % (Auto) (0.0-8.0) % Eos % (Auto) (0.0-4.0) % Baso % (Auto) (0.0-2.0) % Neut # (Auto) (1.8-7.7) th/mm3 Lymph # (Auto) (1.0-4.8) th/mm3 Stanly # (Auto) (0.0-0.9) th/mm3 Eos # (Auto) (0.0-0.4) th/mm3 Baso # (Auto) (0.0-0.2) th/mm3 WBC Differential Differential Comment Sodium (136-145) meq/L Potassium (3.5-5.1) meq/L Chloride (98-107) meq/L Carbon Dioxide (21.0-32.0) meq/L Anion Gap (5-15) meq/L BUN (7-18) mg/dL Creatinine (0.50-1.00) mg/dL Estimated GFR (>89) mL/min Random Glucose (74-106) mg/dL Calcium (8.5-10.1) mg/dL Total Bilirubin (0.2-1.0) mg/dL AST (15-37) U/L ALT (10-53) U/L Alkaline Phosphatase (45-117) U/L Total Protein (6.4-8.2) g/dL Albumin (3.4-5.0) g/dL Urine Opiates Screen Neg (Neg) Ur Barbiturates Screen Neg (Neg) Carbamazepine (4.0-12.0) mcg/mL Ur Amphetamines Screen Neg (Neg) U Benzodiazepines Scrn Neg (Neg) Urine Cocaine Screen Neg (Neg) U Cannabinoids Screen Neg (Neg) Serum Alcohol (0-5) mg/dL Discharge Plan Discharge Disposition Patient Disposition: 07 Against Medical Advice Discharge Order Discharge Orders: AMA Discharge (Routine); Ordered 01/11/18 Ordered By: Droeen Oliva Physicians Team ED Provider: Doreen Oliva Primary Care Provider: Dallas Larose Attending Provider: Mc Acosta Other Providers: Kinga Patel Status ED Status: Left Department Discharge Information Discharge Date/Time: 01/11/18 06:14
[2018-01-11] MEDS ORDERED: Tetanus/Diphtheria Toxoid Adult Vaccine Inj 0.5 ML Vial IM ONE (05:10)
[2018-01-11] MEDS ORDERED: Dextrose 5%/NaCl 0.45% Inj 1,000 ML IV.CONT SCH (05:15)
[2018-01-11 05:21] VITALS: BP 114/69; PULSE 88; O2SAT 18
[2018-01-11 05:23] LABS: Amphetamine Screen,Urine Neg (Neg); Barbiturate Screen,Urine Neg (Neg)
[2018-01-11 05:24] LABS: Cannabinoid Screen,Urine Neg (Neg); Cocaine Screen,Urine Neg (Neg)
[2018-01-11 05:37] LABS: Opiate Screen,Urine Neg (Neg)
[2018-01-11] MEDS ORDERED: Non-Formulary Drug (Lamotrigine [Lamotrigine] 200 MG) PO SCH (09:00)
[2018-01-11] MEDS ORDERED: levETIRAcetam 500 MG Tablet PO SCH (09:00)
== END 2018-01-11 06:15 | disposition left against medical advice (07) ==
LOC: PHED 01:13 → PHEDA 01:13
PROVIDERS: ADMIT Internal Medicine; ATTEND Internal Medicine